=== PATIENT | male | born 1965 | race Caucasian/White ===

== ENCOUNTER 2017-10-07 07:08 | Inpatient (IN) ==
[2017-10-07] MEDS ORDERED: Ketorolac Inj 30 MG/ML (IVP) Vial IV.PUSH ONE (07:55)
[2017-10-07] MEDS ORDERED: Sod Chloride 0.9% Inj 1,000 ML IV.CONT SCH (08:00)
--- NOTE | 2017-10-07 08:04 | ED ---
HPI General Chief Complaint: Abdominal Pain Stated Complaint: Abd pain Time Seen by Provider: 10/07/17 07:46 Source: patient Mode of arrival: ambulatory Limitations: no limitations History of Present Illness HPI narrative: The patient is a 52-year-old male who presents to the emergency department for abdominal pain. The patient states he was seen a week ago on Friday for abdominal pain and diagnosed with diverticulitis after he received a CT the abdomen and pelvis. The patient was placed on Cipro and Flagyl, has taken the medications, however, his symptoms are progressing. He complains of suprapubic pain that radiates into the groin as well as left lower quadrant abdominal pain. The patient was scheduled for an outpatient colonoscopy and endoscopy by his supplier quality engineering manager, Dr. Whitney. The patient does have note fever at home as high as 100.9 last night, has been taking prescription hydrocodone/acetaminophen, last dose this morning which does help with the fever and mildly with the pain. He denies any nausea, vomiting, or diarrhea. He does have a history of enlarged prostate and polyuria, scheduled to see a urologist on an outpatient basis. He denies any current dysuria. Symptoms are mildly alleviated with hydrocodone, exacerbated by palpation, and moderate in intensity. MD complaint: abdominal pain Onset (ago): week(s) Pain Consistency: constant Location: LLQ and suprapubic Severity: moderate Severity scale (1-10): 6 Quality: aching Radiation: other (Groin) Migration to: LLQ Relieving factors: nothing Exacerbating factors: nothing Associated symptoms: denies other symptoms Treatments prior to arrival: prescription analgesics Related Data Previous Rx's Medication Instructions Recorded ciprofloxacin HCl [Cipro] 500 mg PO Q12H #10 tab 09/29/17 metronidazole [Flagyl] 500 mg PO Q8H #10 tab 09/29/17 Allergies Allergy/AdvReac Type Severity Reaction Status Date / Time No Known Allergies Unknown Uncoded 04/07/17 15:16 Review of Systems Except as stated in HPI: all other systems reviewed are negative Constitutional Denies fever(s) Cardiovascular Denies chest pain Respiratory Denies dyspnea Gastrointestinal Reports abdominal pain, Denies nausea and Denies vomiting Genitourinary Denies dysuria and Reports urinary frequency PMF Medical History Medical History Diverticulitis (Acute) Hypertension (Acute) Social History Social History Substance History: No History of Abuse Smoking Status: Never smoker How Often Do You Have a Drink Containing Alcohol: Never Recent Travel in [facility] within the Last 8 Weeks: Yes Recent Out of Country Travel within the Last 8 Weeks: No Exam Narrative Exam Narrative: GENERAL: Awake, alert, pleasant 52-year-old male who appears his stated age and appears in mild discomfort. SKIN: Focused skin assessment warm/dry. HEAD: Atraumatic. Normocephalic. EYES: No injection or drainage. ENT: No nasal bleeding or discharge. Mucous membranes pink and moist. NECK: Trachea midline. No JVD. CARDIOVASCULAR: Regular rate and rhythm. No murmur appreciated. RESPIRATORY: No accessory muscle use. Clear to auscultation. Breath sounds equal bilaterally. GASTROINTESTINAL: Abdomen soft, tender to palpation left lower quadrant and suprapubic region. No guarding or rigidity. Genitourinary: Circumcised phallus. Both testicles are descended, no tenderness upon palpation. Back: No CVA tenderness. MUSCULOSKELETAL: No obvious deformities. No clubbing. No cyanosis. No edema. NEUROLOGICAL: Awake and alert. No obvious cranial nerve deficits. Motor grossly within normal limits. Normal speech. PSYCHIATRIC: Appropriate mood and affect; insight and judgment normal. Course Consultations Consultation #1: The on-call medical service was paged for admission. I discussed the patient with the residents to agree with admission. Time: 12:01 Initial Documented Vital Signs Temperature 98.5 F 10/07/17 07:16 Pulse Rate 83 10/07/17 07:16 Respiratory Rate 19 10/07/17 07:16 Blood Pressure 163/71 H 10/07/17 07:16 Pulse Oximetry 97 10/07/17 07:16 Last Documented Vital Signs Temperature 98.5 F 10/07/17 07:16 Pulse Rate 72 10/07/17 11:50 Respiratory Rate 18 10/07/17 12:16 Blood Pressure 135/81 10/07/17 11:50 Pulse Oximetry 99 10/07/17 11:50 Medical Decision Making MDM Narrative Medical decision making narrative: IV was established, labs are drawn and sent, and the patient was placed on cardiac telemetry monitoring and continuous pulse oximetry monitoring. I reviewed the EMR, the patient's blood work last week revealed a white count of 16.[address] of the abdomen and pelvis with IV contrast revealed diverticulitis of the sigmoid colon. Therefore, IV was established and CBC and lactic acid were sent to lab. Repeat CT the abdomen and pelvis with IV and oral contrast was obtained to evaluate for possible diverticular abscess after failure of outpatient treatment. The patient was administered Toradol intravenously, declined morphine, stating it caused a headache last time he was administered morphine. Maintenance IV fluids were started. CT of the abdomen and pelvis reveals acute diverticulitis with early abscess formation. The patient has failed outpatient therapy, now has a diverticular abscess, was already on Cipro and Flagyl. The patient was administered Zosyn and will be admitted to the medical service. He may benefit from consultation with colorectal surgery. Differential Diagnosis Differential Diagnosis: Differential diagnosis includes diverticulitis failed outpatient therapy, diverticular abscess, perforated viscus, intra-abdominal abscess, sepsis, nephrolithiasis, pyelonephritis. Lab Data Lab results reviewed: Yes I reviewed the patient's lab results. Lab results narrative: The patient's white count is elevated at 17.1, creatinine is elevated at 1.38, lactic acid is normal. Result diagrams: 10/07/17 08:05 10/07/17 08:05 Lab Results 10/07/17 10/07/17 10/07/17 Range/Units 08:05 08:05 08:05 WBC 17.1 H (4.0-11.0) th/mm3 RBC 4.96 (4.50-5.90) mil/mm3 Hgb 14.6 (13.0-17.0) gm/dL Hct 42.8 (39.0-51.0) % MCV 86.4 (80.0-100.0) fL MCH 29.4 (27.0-34.0) pg MCHC 34.1 (32.0-36.0) % RDW 13.9 (11.6-17.2) % Plt Count 365 D (150-450) th/mm3 MPV 6.9 L (7.0-11.0) fL Neut % (Auto) 80.8 H (16.0-70.0) % Lymph % (Auto) 9.9 (9.0-44.0) % [place] % (Auto) 8.5 H (0.0-8.0) % Eos % (Auto) 0.6 (0.0-4.0) % Baso % (Auto) 0.2 (0.0-2.0) % Neut # (Auto) 13.8 H (1.8-7.7) th/mm3 Lymph # (Auto) 1.7 (1.0-4.8) th/mm3 [place] # (Auto) 1.5 H (0.0-0.9) th/mm3 Eos # (Auto) 0.1 (0.0-0.4) th/mm3 Baso # (Auto) 0.0 (0.0-0.2) th/mm3 WBC Differential . Differential Comment Auto diff final Sodium 138 (136-145) meq/L Potassium 3.9 (3.5-5.1) meq/L Chloride 103 (98-107) meq/L Carbon Dioxide 28.2 (21.0-32.0) meq/L Anion Gap 7 (5-15) meq/L BUN 14 (7-18) mg/dL Creatinine 1.38 H (0.60-1.30) mg/dL Estimated GFR 54 L (>89) mL/min Random Glucose 113 H (74-106) mg/dL Lactic Acid 0.7 (0.4-2.0) mmol/L Calcium 9.3 (8.5-10.1) mg/dL Total Bilirubin 0.4 (0.2-1.0) mg/dL AST 15 (15-37) U/L ALT 23 (12-78) U/L Alkaline Phosphatase 92 (45-117) U/L Total Protein 7.8 (6.4-8.2) g/dL Albumin 3.6 (3.4-5.0) g/dL Lipase 186 (73-393) U/L Urine Color (Yellw/Straw) Urine Clarity (Clear) Urine pH (5.0-8.5) Ur Specific [place] (1.002-1.035) Urine Protein (Neg-Trace) mg/dL Urine Glucose (UA) (Negative) mg/dL Urine Ketones (Negative) mg/dL Urine Occult Blood (Negative) Urine Nitrate (Negative) Urine Bilirubin (Negative) Urine Urobilinogen (Less than 2) mg/dL Ur Leukocyte Esterase (Negative) Urine RBC (0-3) /hpf Urine Mucus (Occasional) /lpf Micro UA Comment Urine Culture Comments 10/07/17 Range/Units 08:33 WBC (4.0-11.0) th/mm3 RBC (4.50-5.90) mil/mm3 Hgb (13.0-17.0) gm/dL Hct (39.0-51.0) % MCV (80.0-100.0) fL MCH (27.0-34.0) pg MCHC (32.0-36.0) % RDW (11.6-17.2) % Plt Count (150-450) th/mm3 MPV (7.0-11.0) fL Neut % (Auto) (16.0-70.0) % Lymph % (Auto) (9.0-44.0) % [place] % (Auto) (0.0-8.0) % Eos % (Auto) (0.0-4.0) % Baso % (Auto) (0.0-2.0) % Neut # (Auto) (1.8-7.7) th/mm3 Lymph # (Auto) (1.0-4.8) th/mm3 [place] # (Auto) (0.0-0.9) th/mm3 Eos # (Auto) (0.0-0.4) th/mm3 Baso # (Auto) (0.0-0.2) th/mm3 WBC Differential Differential Comment Sodium (136-145) meq/L Potassium (3.5-5.1) meq/L Chloride (98-107) meq/L Carbon Dioxide (21.0-32.0) meq/L Anion Gap (5-15) meq/L BUN (7-18) mg/dL Creatinine (0.60-1.30) mg/dL Estimated GFR (>89) mL/min Random Glucose (74-106) mg/dL Lactic Acid (0.4-2.0) mmol/L Calcium (8.5-10.1) mg/dL Total Bilirubin (0.2-1.0) mg/dL AST (15-37) U/L ALT (12-78) U/L Alkaline Phosphatase (45-117) U/L Total Protein (6.4-8.2) g/dL Albumin (3.4-5.0) g/dL Lipase (73-393) U/L Urine Color Yellow (Yellw/Straw) Urine Clarity Clear (Clear) Urine pH 6.0 (5.0-8.5) Ur Specific [place] 1.010 (1.002-1.035) Urine Protein Negative (Neg-Trace) mg/dL Urine Glucose (UA) Negative (Negative) mg/dL Urine Ketones Negative (Negative) mg/dL Urine Occult Blood Negative (Negative) Urine Nitrate Negative (Negative) Urine Bilirubin Negative (Negative) Urine Urobilinogen Less than 2 (Less than 2) mg/dL Ur Leukocyte Esterase Negative (Negative) Urine RBC 1 (0-3) /hpf Urine Mucus Few H (Occasional) /lpf Micro UA Comment Culture not ind Urine Culture Comments Culture not ind Imaging Data Radiologist's impression: Abdomen/Pelvis CT 10/07/17 07:55 CONCLUSION: 1. Findings characteristic of acute diverticulitis involving the sigmoid colon with apparent early abscess formation with air-fluid level. 2. Multiple left renal cysts. Discharge Plan Discharge Disposition Patient Disposition: 30 Still Patient Discharge Condition Condition: Stable Discharge Details Diagnosis: Diverticulitis large intestine Physicians Team ED Provider: Christiano Hsieh Primary Care Provider: Vasu Best Attending Provider: Facundo Meeks ED Status: Admitted Patient
[2017-10-07] MEDS ORDERED: Diatrizoate Meglum/Diatrizoate Sod Liq 9 ML UDC ONE (08:13)
[2017-10-07 08:21] LABS: Baso % (Auto) 0.2 % (0.0-2.0); Eos # (Auto) 0.1 th/mm3 (0.0-0.4); Eos % (Auto) 0.6 % (0.0-4.0); Hematocrit 42.8 % (39.0-51.0); Hemoglobin 14.6 gm/dL (13.0-17.0); Lymph # (Auto) 1.7 th/mm3 (1.0-4.8); Lymph % (Auto) 9.9 % (9.0-44.0); Mean Corpuscular HGB Conc 34.1 % (32.0-36.0); Mean Corpuscular Hemoglobin 29.4 pg (27.0-34.0); Mean Corpuscular Volume 86.4 fL (80.0-100.0); Mean Platelet Volume 6.9 fL (7.0-11.0); Mono # (Auto) 1.5 th/mm3 (0.0-0.9); Mono % (Auto) 8.5 % (0.0-8.0); Neut # (Auto) 13.8 th/mm3 (1.8-7.7); Neut % (Auto) 80.8 % (16.0-70.0); Platelet Count 365 th/mm3 (150-450); Red Blood Count 4.96 mil/mm3 (4.50-5.90); Red Cell Distribution Width 13.9 % (11.6-17.2); White Blood Count 17.1 th/mm3 (4.0-11.0)
[2017-10-07 08:34] LABS: Albumin 3.6 g/dL (3.4-5.0); Anion Gap 7 meq/L (5-15); Aspartate Aminotransferase 15 U/L (15-37); Blood Urea Nitrogen 14 mg/dL (7-18); Calcium 9.3 mg/dL (8.5-10.1); Carbon Dioxide 28.2 meq/L (21.0-32.0); Chloride 103 meq/L (98-107); Glomerular Filtration Rate 54 mL/min (>89); Glucose,Random 113 mg/dL (74-106); Lipase 186 U/L (73-393); Potassium 3.9 meq/L (3.5-5.1); Sodium 138 meq/L (136-145)
[2017-10-07 08:36] LABS: Alanine Aminotransferase 23 U/L (12-78)
[2017-10-07 08:37] LABS: Alkaline Phosphatase 92 U/L (45-117); Total Protein 7.8 g/dL (6.4-8.2)
[2017-10-07 09:51] LABS: Bilirubin,Urine Negative (Negative); Clarity,Urine Clear (Clear); Color,Urine Yellow (Yellw/Straw); Glucose,Urine (UA) Negative (Negative); Leukocyte Esterase,Urine Negative (Negative); Mucus,Urine Few /lpf (Occasional); Nitrite,Urine Negative (Negative)
--- NOTE | 2017-10-07 11:36 | CT ---
EXAM DATE: 10/07/2017 11:21 AM EDT AGE/SEX: 52 years / Male INDICATIONS: Suprapubic pain for 1 week CLINICAL DATA: This is the patient's initial encounter. Patient reports that signs and symptoms have been present for 1 day and indicates a pain score of 9/10. MEDICAL/SURGICAL HISTORY: Hypertension. None. ORAL CONTRAST: Prescribed oral contrast ingested. RADIATION DOSE: 7.88 CTDI (mGy) COMPARISON: [facility], CT ABDOMEN & PELVIS W CONTRAST, 09/29/2017. . TECHNIQUE: Multiple contiguous axial images were obtained through the abdomen and pelvis following b olus infusion of 90 ml Omnipaque 350 (iohexol) nonionic water-soluble contrast as a single exam dos e. Prescribed oral contrast ingested. Using automated exposure control and adjustment of the mA and/ or kV according to patient size, radiation dose was kept as low as reasonably achievable to obtain op timal diagnostic quality images. DICOM format image data is available electronically for review and comparison. FINDINGS: Lower Lungs: The visualized lower lungs are clear. Liver: The liver has a homogeneous density without space-occupying lesion. There is no dilation of th e biliary tree. The gallbladder is unremarkable in appearance. There is mild hepatic steatosis. Spleen: Homogeneous density without enlargement. Pancreas: Unremarkable without mass or calcification. Kidneys: Normal in size and shape. No evidence of a solid mass or hydronephrosis. A simple cyst is n oted in the upper pole of left kidney. There are smaller cysts as well. Adrenal Glands: Unremarkable. Aorta: The aorta and proximal iliac vessels are grossly unremarkable without aneurysmal dilation. Bowel/Mesentery: There is bowel wall thickening and inflammatory change involving the proximal sigmo id colon with focal fluid collection with air-fluid level measuring up to approximately 2.8 cm in helen meter. This extends off the right upper side of the colon. There is no well-defined wall. There are m ultiple adjacent diverticuli. The bowel gas pattern is nonobstructive. There is a normal appendix. Abdominal Wall: Intact. Retroperitoneum: No evidence of adenopathy in the retrocrural, para-aortic, or deep pelvic regions. Bladder: Contours are smooth. Reproductive Organs: No abnormal masses or calcifications seen. Inguinal: The inguinal region is unremarkable without evidence of adenopathy. Bony Structures: Unremarkable. CONCLUSION: 1. Findings characteristic of acute diverticulitis involving the sigmoid colon with apparent early a bscess formation with air-fluid level. 2. Multiple left renal cysts. Electronically signed by: Chauncey Rinaldi MD 10/07/2017 11:35 AM EDT
[2017-10-07] MEDS ORDERED: Piperacil/Tazo 4.5 GM Premix 4.5 GM/100 ML BAG IV.SIG ONE (11:54)
[2017-10-07] MEDS ORDERED: Diatrizoate Meglum/Diatrizoate Sod Liq 9 ML UDC PO ONE (12:00)
--- NOTE | 2017-10-07 12:34 | P.HPFP ---
Addendum entered and electronically signed by Yun Bautista MD, R1 10/07/17 17 :37: Increase of Zosyn to 4.5gq6 Original Note: History of Present Illness Primary Care Physician: Vasu Best DO <Facundo Meeks - 10/07/17 20:05> Vasu Best DO <Ynu Bautista - 10/07/17 13:01> Chief Complaint: Abdominal pain <Yun Bautista - 10/07/17 13:01> History of Present Illness: 52-year-old male presenting for abdominal pain and found to have diverticulitis with diverticular abscess on CT scan. He was seen in the emergency department 8 days ago for generalized abdominal pain and was diagnosed with diverticulitis. He was treated with Cipro and Flagyl and discharged, he noted some improvement while on the medication but completed his antibiotic course 4 days ago. Since that time he has noticed progression of his lower abdominal pain that he describes as sharp in nature that is worse with movement. He also endorses associated scrotal pain without swelling. He has noticed fevers up to 100.9F as well as decreased appetite and weight loss. He denies melena or hematochezia, denies chest pain or palpitations, denies nausea or vomiting, denies shortness of breath. <Facundo Meeks - 10/07/17 20:05> Mr. Loera is a 52yom here for abdominal and scrotal pain. He reports that he was seen in the ED last Friday for generalized abdominal pain. At that time he was diagnosed with diverticulitis and was d/c with Cipro and Flagyl. He was taking his medications and began to feel better. Ab course ended on Friday and he began to have lower abdominal pain. Sharp in nature, comes and goes, no real associated aggravating or alleviating factors. Associated scrotal pain that is relieved with urination. He has some nausea but no vomiting. Fever with max of about 100.9. He reports 10lb weight loss in past 2 weeks with not eating much. He has not had many bowel movements with his liquid diet though he did have a small one last night with no blood. He reports a history of bloating and immediate defecation post prandial which he states is normal for him but has abated since he stopped eating. He saw Dr Willis with GI with plans for a colonoscopy on Friday. PMH significant for colonoscopy 5 years ago with only "a couple of polyps" FMH significant for appendiceal cancer in mom <Yun Bautista 10/07/17 16:03> - Diagnosis (1) Colonic diverticular abscess (2) ELAINE (acute kidney injury) (3) Hypertension <Facundo Meeks 10/07/17 20:05> (1) Colonic diverticular abscess (2) ELAINE (acute kidney injury) (3) Hypertension <Yun Bautista 10/07/17 16:03> Inpatient Certification: I certify that the inpatient services were ordered in accordance with Medicare regulations governing the order. This includes certification that hospital inpatient services are reasonable and necessary and in the case of services not specified as inpatient-only under 42 CFR 419.22(n), that they are appropriately provided as inpatient services in accordance to with the 2-midnight benchmark under 43 CFR 412.3(e) <Facundo Meeks 10/07/17 20:05> Review of Systems Constitutional: Reports chills, Reports fever(s), Reports weight loss, Denies headache(s) <Yun Bautista 10/07/17 16:03> Eyes: Denies blurry vision, Denies change in vision, Denies double vision < Yun Bautista 10/07/17 16:03> Ears, Nose, Mouth, and Throat: Reports nasal discharge, Denies dizziness, Denies headache(s), Denies sore throat <Yun Bautista 10/07/17 16:03> Cardiovascular: Denies chest pain, Denies fast heart rate, Denies shortness of breath <Yun Bautista 10/07/17 16:03> Respiratory: Denies cough, Denies shortness of breath <Yun Bautista 16:03> Gastrointestinal: Reports abdominal pain, Reports cramping, Reports nausea, Denies black, tarry stools, Denies bright, red blood in stools, Denies incontinent of stools, Denies vomiting, Denies vomiting blood <Yun Bautista 10/07/17 16:03> Genitourinary: Reports urinary frequency, Denies blood in urine, Denies decreased urination, Denies difficulty urinating, Denies painful urination < MicheleYun Jacque 10/07/17 16:03> Musculoskeletal: Reports back pain, Denies numbness <Yun Bautista 10/07/17 16:03> Neurologic: Denies dizziness, Denies numbness, Denies tingling <MicheleYun E 10/07/17 16:03> PMFSH - History History Provided By: Patient <Luis Enrique Bautistareed Santillan 10/07/17 12:34> - Medical History Medical History: Medical History (Last Updated 10/07/17 @ 08:03 by Norma Snyder, RN) Diverticulitis Hypertension <JeannaIvelissey 10/07/17 20:05> Medical History (Last Updated 10/07/17 @ 08:03 by Norma Snyder, RODRIGUEZ) Diverticulitis Hypertension <MicheleYun E 10/07/17 12:34> - Family History Family History: Family History (Last Updated 10/07/17 @ 15:42 by Yun Bautista MD, R1) Mother Cancer of appendix Father Prostate cancer <JeannaFacundo Margaret 10/07/17 20:05> Family History (Last Updated 10/07/17 @ 15:42 by Yun Bautista MD, R1) Mother Cancer of appendix Father Prostate cancer <MicheleYun 10/07/17 16:03> - Tobacco History Smoking Status: Former smoker <MicheleYun E 10/07/17 16:03> - Alcohol History How Often Do You Have a Drink Containing Alcohol: Never <Yun Bautista 10/07 12:34> - Substance Use History Substance History: Active Abuse (Marijuana "occassionally") <Yun Bautista 10/07/17 16:03> - Travel History Recent Travel in the [facility] Within the Last 8 Weeks: Yes <Yun Bautista 12:34> Recent Travel Out of the Country Within the Last 8 Weeks: No <Yun Bautista 10/07/17 12:34> - Immunization History Tetanus Immunization: <5 Years <Yun Bautista 10/07/17 12:34> Medications and Allergies Allergies Allergy/AdvReac Type Severity Reaction Status Date / Time No Known Allergies Unknown Uncoded 04/07/17 15:16 <Facundo Meeks - 10/07/17 20:05> Home Medications Medication Instructions Recorded Confirmed Type metoprolol tartrate [Lopressor] 25 mg PO BID 10/07/17 10/07/17 History <Facundo Meeks - 10/07/17 20:05> Active Medications: Active Medications Acetaminophen (Tylenol) 650 mg PO Q6H PRN PRN Reason: ABDOMINAL PAIN Last Admin: 10/07/17 16:37 Dose: 650 mg Hydrocodone Bitart/Acetaminophen ([place] 5/325) 1 tab PO Q6H PRN PRN Reason: PAIN SCALE 6 TO 10 Last Admin: 10/07/17 19:43 Dose: 1 tab Al Hydroxide/Mg Hydroxide (Milk Of Magnmanuel Limirna) 30 ml PO Q12H PRN PRN Reason: Mild Constipation Piperacillin/Tazobactam/Dextrose (Zosyn 4.5 Gm Premix) 4.5 gm in 100 mls @ 200 mls/hr IV.SIG Q6H [facility] Last Admin: 10/07/17 19:42 Dose: 200 mls/hr Sodium Chloride (Ns Inj) 1,000 mls @ 125 mls/hr IV.CONT .Q8H [facility] Last Admin: 10/07/17 19:42 Dose: 125 mls/hr Metoprolol Tartrate (Lopressor) 25 mg PO DAILY [facility] Last Admin: 10/07/17 16:38 Dose: 25 mg Ondansetron HCl (Zofran Odt) 4 mg PO Q6H PRN PRN Reason: NAUSEA OR VOMITING Senna/Docusate Sodium (Daniela-Colace) 1 tab PO BID [facility] Sennosides (Senokot) 17.2 mg PO Q12H PRN PRN Reason: Moderate Constipation Sodium Chloride (Ns Flush) 2 ml IV.FLUSH PRN PRN PRN Reason: FLUSH AFTER USING IV ACCESS Last Admin: 10/07/17 08:16 Dose: 2 ml <Facundo Meeks - 10/07/17 20:05> Active Medications Sodium Chloride (Ns Inj) 1,000 mls @ 125 mls/hr IV.CONT .Q8H [facility] Stop: 10/07/17 15:59 Last Admin: 10/07/17 08:16 Dose: 125 mls/hr Piperacillin/Tazobactam/Dextrose (Zosyn 4.5 Gm Premix) 4.5 gm in 100 mls @ 200 mls/hr IV.SIG ONCE ONE Stop: 10/07/17 12:23 Sodium Chloride (Ns Flush) 2 ml IV.FLUSH PRN PRN PRN Reason: FLUSH AFTER USING IV ACCESS Last Admin: 10/07/17 08:16 Dose: 2 ml <Yun Bautista - 10/07/17 12:34> Exam Vital signs: Vital Signs 10/07/17 07:16 10/07/17 08:05 10/07/17 11:50 Temperature 98.5 F Pulse Rate 83 70 72 Respiratory Rate 19 18 18 Blood Pressure 163/71 H 131/78 135/81 Pulse Oximetry 97 96 99 10/07/17 12:16 10/07/17 16:00 Temperature 98.0 F Pulse Rate 66 Respiratory Rate 18 18 Blood Pressure 126/62 Pulse Oximetry 95 Intake & Output 10/07/17 10/07/17 10/08/17 06:59 18:59 06:59 Intake Total 1000 / 1000 Balance 1000 / 1000 Weight 79.379 kg Intake: IV 1000 / 1000 NS Inj 1,000 ML @ 125 mls/hr IV 1000 / 1000 .CONT .Q8H [facility] Rx#:[id number] <Facundo Meeks - 10/07/17 20:05> Vital Signs 10/07/17 07:16 10/07/17 08:05 10/07/17 11:50 Temperature 98.5 F Pulse Rate 83 70 72 Respiratory Rate 19 18 18 Blood Pressure 163/71 H 131/78 135/81 Pulse Oximetry 97 96 99 Intake & Output 10/06/17 10/07/17 10/07/17 18:59 06:59 18:59 Weight 79.379 kg <Yun Bautista 10/07/17 12:34> Narrative: General: Healthy-appearing male, sitting up in bed in no obvious distress Skin: Warm and dry without rash HEENT: [place] and mildly dry mucous membranes CV: Regular rate and rhythm without murmur Pulmonary: Clear to auscultation bilaterally GI: Abdomen soft with some guarding diffusely. Tender to palpation diffusely but more so in the suprapubic and left lower quadrant region <Facundo Meeks - 10/07/17 20:05> GENERAL: Well appearing male lying in bed. No acute distress. SKIN: Warm and dry. HEAD: Normocephalic. EYES: No scleral icterus. No injection or drainage. NECK: Supple, trachea midline. No JVD or lymphadenopathy. CARDIOVASCULAR: Regular rate and rhythm without murmurs, gallops, or rubs. RESPIRATORY: Breath sounds equal bilaterally. No accessory muscle use. GASTROINTESTINAL: Abdomen soft, minimally distended. Diffusely tender to light palpation, more so in R lower quadrant. : Scrotum mildly tender to palpation >on the right side. MUSCULOSKELETAL: No cyanosis, or edema. BACK: Nontender without obvious deformity. No CVA tenderness. <Yun Bautista - 10/07/17 16:03> Results - Labs Result diagrams: 10/07/17 08:05 10/07/17 08:05 <JeannaFacundo - 10/07/17 20:05> Abnormal lab results 10/07/17 10/07/17 10/07/17 Range/Units 08:05 08:05 08:33 WBC 17.1 H (4.0-11.0) th/mm3 MPV 6.9 L (7.0-11.0) fL Neut % (Auto) 80.8 H (16.0-70.0) % [place] % (Auto) 8.5 H (0.0-8.0) % Neut # (Auto) 13.8 H (1.8-7.7) th/mm3 [place] # (Auto) 1.5 H (0.0-0.9) th/mm3 Creatinine 1.38 H (0.60-1.30) mg/dL Estimated GFR 54 L (>89) mL/min Random Glucose 113 H (74-106) mg/dL Urine Mucus Few H (Occasional) /lpf Short CBC 10/07/17 Range/Units 08:05 WBC 17.1 H (4.0-11.0) th/mm3 Hgb 14.6 (13.0-17.0) gm/dL Hct 42.8 (39.0-51.0) % Plt Count 365 D (150-450) th/mm3 BMP 10/07/17 08:05 Sodium 138 Potassium 3.9 Chloride 103 Carbon Dioxide 28.2 BUN 14 Creatinine 1.38 H Calcium 9.3 Liver Function 10/07/17 Range/Units 08:05 Total Bilirubin 0.4 (0.2-1.0) mg/dL AST 15 (15-37) U/L ALT 23 (12-78) U/L Alkaline Phosphatase 92 (45-117) U/L Albumin 3.6 (3.4-5.0) g/dL Urine 10/07/17 Range/Units 08:33 Urine Color Yellow (Yellw/Straw) Urine Clarity Clear (Clear) Urine pH 6.0 (5.0-8.5) Ur Specific [place] 1.010 (1.002-1.035) Urine Protein Negative (Neg-Trace) mg/dL Urine Glucose (UA) Negative (Negative) mg/dL <Facundo Meeks - 10/07/17 20:05> Abnormal lab results 10/07/17 10/07/17 10/07/17 Range/Units 08:05 08:05 08:33 WBC 17.1 H (4.0-11.0) th/mm3 MPV 6.9 L (7.0-11.0) fL Neut % (Auto) 80.8 H (16.0-70.0) % [place] % (Auto) 8.5 H (0.0-8.0) % Neut # (Auto) 13.8 H (1.8-7.7) th/mm3 [place] # (Auto) 1.5 H (0.0-0.9) th/mm3 Creatinine 1.38 H (0.60-1.30) mg/dL Estimated GFR 54 L (>89) mL/min Random Glucose 113 H (74-106) mg/dL Urine Mucus Few H (Occasional) /lpf Short CBC 10/07/17 Range/Units 08:05 WBC 17.1 H (4.0-11.0) th/mm3 Hgb 14.6 (13.0-17.0) gm/dL Hct 42.8 (39.0-51.0) % Plt Count 365 D (150-450) th/mm3 BMP 10/07/17 08:05 Sodium 138 Potassium 3.9 Chloride 103 Carbon Dioxide 28.2 BUN 14 Creatinine 1.38 H Calcium 9.3 Liver Function 10/07/17 Range/Units 08:05 Total Bilirubin 0.4 (0.2-1.0) mg/dL AST 15 (15-37) U/L ALT 23 (12-78) U/L Alkaline Phosphatase 92 (45-117) U/L Albumin 3.6 (3.4-5.0) g/dL Urine 10/07/17 Range/Units 08:33 Urine Color Yellow (Yellw/Straw) Urine Clarity Clear (Clear) Urine pH 6.0 (5.0-8.5) Ur Specific [place] 1.010 (1.002-1.035) Urine Protein Negative (Neg-Trace) mg/dL Urine Glucose (UA) Negative (Negative) mg/dL <Yun Bautista - 10/07/17 12:34> - Imaging Impressions Abdomen/Pelvis CT 10/07/17 07:55 CONCLUSION: 1. Findings characteristic of acute diverticulitis involving the sigmoid colon with apparent early abscess formation with air-fluid level. 2. Multiple left renal cysts. <Facundo Meeks - 10/07/17 20:05> Impressions Abdomen/Pelvis CT 10/07/17 07:55 CONCLUSION: 1. Findings characteristic of acute diverticulitis involving the sigmoid colon with apparent early abscess formation with air-fluid level. 2. Multiple left renal cysts. <Yun Bautista - 10/07/17 12:34> Caprini VTE Risk Assessment Caprini VTE Risk Assessment: No/Low Risk (score <= 1) <Yun Bautista - 16:03> Caprini Risk Assessment Model: Point Value = 1 Point Value = 2 Point Value = 3 Point Value = 5 Age 41-60 Minor surgery BMI > 25 kg/m2 Swollen legs Varicose veins or History of unexplained or recurrent spontaneous Oral contraceptives or hormone replacement Sepsis (< 1 month) Serious lung disease, including pneumonia (< 1 month) Abnormal pulmonary function Acute myocardial infarction Congestive heart failure (< 1 month) History of inflammatory bowel disease Medical patient at bed rest Age 61-74 Arthroscopic surgery Major open surgery (> 45 min) Laparoscopic surgery (> 45 min) Malignancy Confined to bed (> 72 hours) Immobilizing plaster cast Central venous access Age >= 75 History of VTE Family history of VTE Factor V Leiden Prothrombin [id number] Lupus anticoagulant Anticardiolipin antibodies Elevated serum homocysteine Heparin-induced thrombocytopenia Other congenital or acquired thrombophilia Stroke (< 1 month) Elective arthroplasty Hip, pelvis, or leg fracture Acute spinal cord injury (< 1 month) <Facundo Meeks - 10/07/17 20:05> Point Value = 1 Point Value = 2 Point Value = 3 Point Value = 5 Age 41-60 Minor surgery BMI > 25 kg/m2 Swollen legs Varicose veins or History of unexplained or recurrent spontaneous Oral contraceptives or hormone replacement Sepsis (< 1 month) Serious lung disease, including pneumonia (< 1 month) Abnormal pulmonary function Acute myocardial infarction Congestive heart failure (< 1 month) History of inflammatory bowel disease Medical patient at bed rest Age 61-74 Arthroscopic surgery Major open surgery (> 45 min) Laparoscopic surgery (> 45 min) Malignancy Confined to bed (> 72 hours) Immobilizing plaster cast Central venous access Age >= 75 History of VTE Family history of VTE Factor V Leiden Prothrombin [id number] Lupus anticoagulant Anticardiolipin antibodies Elevated serum homocysteine Heparin-induced thrombocytopenia Other congenital or acquired thrombophilia Stroke (< 1 month) Elective arthroplasty Hip, pelvis, or leg fracture Acute spinal cord injury (< 1 month) <Yun Bautista - 10/07/17 12:34> Prophylaxis Regimen: Total Risk Factor Score Risk Level Prophylaxis Regimen 0-1 Low Early ambulation 2 Moderate Order ONE of the following: *Sequential Compression Device (SCD) *Heparin 5000 units SQ BID 3-4 Higher Order ONE of the following medications: *Heparin 5000 units SQ TID *Enoxaparin/Lovenox 40 mg SQ daily (WT < 150 kg, CrCl > 30 mL/min) *Enoxaparin/Lovenox 30 mg SQ daily (WT < 150 kg, CrCl > 10-29 mL/min) *Enoxaparin/Lovenox 30 mg SQ BID (WT < 150 kg, CrCl > 30 mL/min) AND/OR *Sequential Compression Device (SCD) 5 or more Highest Order ONE of the following medications: *Heparin 5000 units SQ TID (Preferred with Epidurals) *Enoxaparin/Lovenox 40 mg SQ daily (WT < 150 kg, CrCl > 30 mL/min) *Enoxaparin/Lovenox 30 mg SQ daily (WT < 150 kg, CrCl > 10-29 mL/min) *Enoxaparin/Lovenox 30 mg SQ BID (WT < 150 kg, CrCl > 30 mL/min) AND *Sequential Compression Device (SCD) <Facundo Meeks - 10/07/17 20:05> Total Risk Factor Score Risk Level Prophylaxis Regimen 0-1 Low Early ambulation 2 Moderate Order ONE of the following: *Sequential Compression Device (SCD) *Heparin 5000 units SQ BID 3-4 Higher Order ONE of the following medications: *Heparin 5000 units SQ TID *Enoxaparin/Lovenox 40 mg SQ daily (WT < 150 kg, CrCl > 30 mL/min) *Enoxaparin/Lovenox 30 mg SQ daily (WT < 150 kg, CrCl > 10-29 mL/min) *Enoxaparin/Lovenox 30 mg SQ BID (WT < 150 kg, CrCl > 30 mL/min) AND/OR *Sequential Compression Device (SCD) 5 or more Highest Order ONE of the following medications: *Heparin 5000 units SQ TID (Preferred with Epidurals) *Enoxaparin/Lovenox 40 mg SQ daily (WT < 150 kg, CrCl > 30 mL/min) *Enoxaparin/Lovenox 30 mg SQ daily (WT < 150 kg, CrCl > 10-29 mL/min) *Enoxaparin/Lovenox 30 mg SQ BID (WT < 150 kg, CrCl > 30 mL/min) AND *Sequential Compression Device (SCD) <Yun Bautista - 10/07/17 12:34> Assessment and Plan - Assessment (1) Colonic diverticular abscess Code(s): K57.20 - Diverticulitis of large intestine with perforation and abscess without bleeding Status: Acute Plan: Diverticulitis with abscess formation failing outpatient treatment with Cipro and Flagyl Antibiotics: Zosyn 3.375 g IV every 6 hoursday #1 Tylenol 650 mg p.o. every 6 hours as needed for fever N.p.o. with normal saline at 125 mL/hour Likely will require drainage by interventional radiology versus surgical intervention -general surgery consulted to evaluate (2) ELAINE (acute kidney injury) Code(s): N17.9 - Acute kidney failure, unspecified Status: Acute Plan: L infection ikely due to decreased oral intake and Normal saline running at 125 mL/hour and status post bolus of normal saline in the emergency department Repeat BMP in the morning It appears the patient's baseline creatinine is approximately 1.2 (3) Hypertension Code(s): I10 - Essential (primary) hypertension Status: Acute <Facundo Meeks - 10/07/17 20:05> (1) Colonic diverticular abscess Code(s): K57.20 - Diverticulitis of large intestine with perforation and abscess without bleeding Status: Acute Plan: -Pt failed outpatient treatment of diverticulitis with 7days of Cipro+ Flagyl -Consult to general surgery for evaluation with possible drainage -Zosyn 3.375g q6h day 1 of 7 -Tylenol 650mg PO q6h PRN abdominal -NS 125mL/hr -NS Bolus given in ED (2) ELAINE (acute kidney injury) Code(s): N17.9 - Acute kidney failure, unspecified Status: Acute Plan: -NS Fluid running at 125mL/hr -BMP in the morning, Continue to monitor -Pt's baseline Cr about 1.2, elevated to 1.38 (3) Hypertension Code(s): I10 - Essential (primary) hypertension Status: Acute Plan: Continue home medication of metoprolol 25mg daily <Yun Bautista - 10/07/17 16:03> - Assessment and Plan Discussed Condition With: No Meeks and Osman <Yun Bautista - 10/07/17 16:03> Discharge Planning: D/c home likely within next 72 hours pending surgery recommendations <Yun Bautista - 10/07/17 16:04> - Attending Attestation Patient was examined independently and case discussed with resident physicians I have read the above note and agree with the assessment/plan as discussed with me I was involved in all medical decision making for this patient Facundo Meeks MD <Facundo Meeks - 10/07/17 20:05>
[2017-10-07] MEDS ORDERED: Sod Chloride 0.9% Inj 1,000 ML IV.SIG ONE (14:34)
[2017-10-07] MEDS: Acetaminophen 325 MG Tablet PO PRN (16:37)
[2017-10-07] MEDS: Metoprolol Tartrate 25 MG Tablet PO SCH (16:38)
[2017-10-07] MEDS ORDERED: Piperacil/Tazo 3.375 GM Premix 50 ML IV.SIG SCH (18:00)
[2017-10-07] MEDS: Piperacil/Tazo 4.5 GM Premix 4.5 GM/100 ML BAG IV.SIG SCH (19:42)
[2017-10-07] MEDS: Sod Chloride 0.9% Inj 1,000 ML IV.CONT SCH (19:42)
[2017-10-07] MEDS: Senna/Docusate Sodium 8.6/50 MG Tablet PO SCH (20:11)
[2017-10-08] MEDS: Piperacil/Tazo 4.5 GM Premix 4.5 GM/100 ML BAG IV.SIG SCH ×5 (00:42→23:41)
[2017-10-08] MEDS: Sod Chloride 0.9% Inj 1,000 ML IV.CONT SCH ×4 (05:27→20:57)
[2017-10-08 07:30] LABS: Hematocrit 38.6 % (39.0-51.0); Hemoglobin 13.1 gm/dL (13.0-17.0); Mean Corpuscular Hemoglobin 29.6 pg (27.0-34.0); Mean Corpuscular Volume 87.1 fL (80.0-100.0); Mean Platelet Volume 7.2 fL (7.0-11.0); Platelet Count 340 th/mm3 (150-450); Red Blood Count 4.44 mil/mm3 (4.50-5.90); Red Cell Distribution Width 13.5 % (11.6-17.2); White Blood Count 14.6 th/mm3 (4.0-11.0)
[2017-10-08 07:34] LABS: Prothrombin Time 10.5 sec (9.8-11.6)
[2017-10-08 07:52] LABS: Calcium 8.7 mg/dL (8.5-10.1); Potassium 3.9 meq/L (3.5-5.1)
--- NOTE | 2017-10-08 08:36 | P.CONGS ---
[facility] Gen Surgery Consult Note Consult date: 10/08/17 Reason for consult: abdominal pain Narrative: Patient is a 52-year-old male who presented to the emergency department 1 week ago due to lower abdominal pain and was diagnosed with diverticulitis. He was discharged with oral Cipro/Flagyl. He felt somewhat improved for a couple of days and then the pain again worsened. He was evaluated in the emergency department yesterday noted to have leukocytosis and a CT scan of the abdomen pelvis shows persistent sigmoid diverticulitis with peridiverticular abscess. He has mild discomfort when urinating. He had a small dark bowel movement this morning. He currently complains of severe pain in the suprapubic area and left lower quadrant. 2 months ago he had a similar episode but much milder. Otherwise he has never had any episodes of diverticulitis that he knows of. No previous abdominal surgeries. Review of Systems All other systems reviewed negative except as stated in [facility] - History History Provided By: Patient - Medical History Medical History: Medical History (Last Updated 10/07/17 @ 08:03 by Norma Snyder RN) Diverticulitis Hypertension - Family History Family History: Family History (Last Updated 10/07/17 @ 15:42 by Yun Bautista MD, R1) Mother Cancer of appendix Father Prostate cancer - Tobacco History Second Hand Smoke Exposure: No Tobacco Use In Past 30 Days: No Smoking Status: Former smoker - Alcohol History How Often Do You Have a Drink Containing Alcohol: Never - Substance Use History Substance History: Active Abuse (Marijuana "occassionally") - Travel History Recent Travel in the [place] Within the Last 8 Weeks: Yes Recent Travel Out of the Country Within the Last 8 Weeks: No - Immunization History Tetanus Immunization: <5 Years Medications and Allergies Active Medications: Active Medications Acetaminophen (Tylenol) 650 mg PO Q6H PRN PRN Reason: ABDOMINAL PAIN Last Admin: 10/07/17 16:37 Dose: 650 mg Hydrocodone Bitart/Acetaminophen (Mason 5/325) 1 tab PO Q6H PRN PRN Reason: PAIN SCALE 6 TO 10 Last Admin: 10/08/17 02:02 Dose: 1 tab Al Hydroxide/Mg Hydroxide (Milk Of Magnesia Liq) 30 ml PO Q12H PRN PRN Reason: Mild Constipation Piperacillin/Tazobactam/Dextrose (Zosyn 4.5 Gm Premix) 4.5 gm in 100 mls @ 200 mls/hr IV.SIG Q6H [facility] Last Infusion: 10/08/17 05:56 Dose: Infused Sodium Chloride (Ns Inj) 1,000 mls @ 125 mls/hr IV.CONT .Q8H [facility] Last Admin: 10/08/17 05:27 Dose: 125 mls/hr Metoprolol Tartrate (Lopressor) 25 mg PO DAILY [facility] Last Admin: 10/07/17 16:38 Dose: 25 mg Ondansetron HCl (Zofran Odt) 4 mg PO Q6H PRN PRN Reason: NAUSEA OR VOMITING Senna/Docusate Sodium (Daniela-Colace) 1 tab PO BID [facility] Last Admin: 10/07/17 20:11 Dose: Not Given Sennosides (Senokot) 17.2 mg PO Q12H PRN PRN Reason: Moderate Constipation Sodium Chloride (Ns Flush) 2 ml IV.FLUSH PRN PRN PRN Reason: FLUSH AFTER USING IV ACCESS Last Admin: 10/07/17 08:16 Dose: 2 ml Allergies Allergy/AdvReac Type Severity Reaction Status Date / Time No Known Allergies Unknown Uncoded 04/07/17 15:16 Home Medications Medication Instructions Recorded Confirmed Type metoprolol tartrate [Lopressor] 25 mg PO BID 10/07/17 10/07/17 History Exam Vital signs: Vital Signs 10/07/17 11:50 10/07/17 12:16 10/07/17 16:00 Temperature 98.0 F Pulse Rate 72 66 Respiratory Rate 18 18 18 Blood Pressure 135/81 126/62 Pulse Oximetry 99 95 10/07/17 20:00 10/08/17 00:00 Temperature 98.1 F 97.8 F Pulse Rate 69 62 Respiratory Rate 17 17 Blood Pressure 121/62 139/66 Pulse Oximetry 97 97 Intake & Output 10/07/17 10/08/17 10/08/17 18:59 06:59 18:59 Intake Total 2099 1300 / 1300 Balance 2099 1300 / 1300 Weight 79.379 kg Intake: IV 2099 / 2099 1300 / 1300 NS Inj 1,000 ML @ 125 mls/hr IV 1000 / 1000 1000 / 1000 .CONT .Q8H [facility] Rx#:[id number] Zosyn 4.5 GM Premix 4.5 gm In 100 / 100 300 / 300 100 ml @ 200 mls/hr IV.SIG Q6H [facility] Rx#:[id number] NS Inj 1,000 ML @ Wide Open IV. 1000 / 1000 SIG BOLUS ONE Rx#:[id number] Other: # Voids 3 Narrative: GENERAL: Awake and alert. Appears in pain. Cooperative. HEAD: Normocephalic. Atraumatic. EYES: Pupils equal round and reactive to light bilaterally. No scleral icterus. ENT: Moist oral mucosa. NECK: Trachea midline. CHEST: Nonlabored breathing. No respiratory distress. CARDIOVASCULAR: Regular rate and rhythm. ABDOMEN: Soft. Rebound tenderness in the suprapubic area and left lower abdomen. Otherwise nontender. EXTREMITIES: No cyanosis or edema. SKIN: Warm, dry, nonjaundiced. Results - Labs 10/08/17 06:14 10/08/17 06:14 Abnormal lab results 10/07/17 10/07/17 10/08/17 Range/Units 08:05 08:33 06:14 WBC 14.6 H (4.0-11.0) th/mm3 RBC 4.44 L (4.50-5.90) mil/mm3 Hct 38.6 L (39.0-51.0) % Creatinine 1.38 H (0.60-1.30) mg/dL Estimated GFR 54 L (>89) mL/min Random Glucose 113 H (74-106) mg/dL Urine Mucus Few H (Occasional) /lpf 10/08/17 Range/Units 06:14 WBC (4.0-11.0) th/mm3 RBC (4.50-5.90) mil/mm3 Hct (39.0-51.0) % Creatinine (0.60-1.30) mg/dL Estimated GFR 61 L (>89) mL/min Random Glucose (74-106) mg/dL Urine Mucus (Occasional) /lpf Diabetes panel 10/07/17 10/08/17 Range/Units 08:05 06:14 Sodium 138 140 (136-145) meq/L Potassium 3.9 3.9 (3.5-5.1) meq/L Chloride 103 106 (98-107) meq/L Carbon Dioxide 28.2 25.0 (21.0-32.0) meq/L BUN 14 11 (7-18) mg/dL Creatinine 1.38 H 1.23 (0.60-1.30) mg/dL Calcium 9.3 8.7 (8.5-10.1) mg/dL AST 15 (15-37) U/L ALT 23 (12-78) U/L Alkaline Phosphatase 92 (45-117) U/L Total Protein 7.8 (6.4-8.2) g/dL Albumin 3.6 (3.4-5.0) g/dL Calcium panel 10/07/17 10/08/17 Range/Units 08:05 06:14 Calcium 9.3 8.7 (8.5-10.1) mg/dL Albumin 3.6 (3.4-5.0) g/dL Pituitary panel 10/07/17 10/08/17 Range/Units 08:05 06:14 Sodium 138 140 (136-145) meq/L Potassium 3.9 3.9 (3.5-5.1) meq/L Chloride 103 106 (98-107) meq/L Carbon Dioxide 28.2 25.0 (21.0-32.0) meq/L BUN 14 11 (7-18) mg/dL Creatinine 1.38 H 1.23 (0.60-1.30) mg/dL Calcium 9.3 8.7 (8.5-10.1) mg/dL Adrenal panel 10/07/17 10/08/17 Range/Units 08:05 06:14 Sodium 138 140 (136-145) meq/L Potassium 3.9 3.9 (3.5-5.1) meq/L Chloride 103 106 (98-107) meq/L Carbon Dioxide 28.2 25.0 (21.0-32.0) meq/L BUN 14 11 (7-18) mg/dL Creatinine 1.38 H 1.23 (0.60-1.30) mg/dL Calcium 9.3 8.7 (8.5-10.1) mg/dL Total Bilirubin 0.4 (0.2-1.0) mg/dL AST 15 (15-37) U/L ALT 23 (12-78) U/L Alkaline Phosphatase 92 (45-117) U/L Total Protein 7.8 (6.4-8.2) g/dL Albumin 3.6 (3.4-5.0) g/dL All other labs normal. - Imaging CT scan - abdomen: report reviewed, image reviewed CT scan - pelvis: report reviewed, image reviewed (Discussed CT findings with Dr. Donahue radiology) Assessment and Plan - Assessment (1) Colonic diverticular abscess Code(s): K57.20 - Diverticulitis of large intestine with perforation and abscess without bleeding Status: Acute - Plan The patient has failed outpatient management of diverticulitis and has progressed to having it diverticular abscess while on oral medications. Continue IV Zosyn. Discussed CT findings with radiology and they will likely be able to perform CT-guided abscess drainage. If the patient's symptoms persist or worsen is possible he would require operative intervention. Discussed all these findings in detail with the patient and his .
[2017-10-08] MEDS: Metoprolol Tartrate 25 MG Tablet PO SCH (08:43)
[2017-10-08] MEDS: Senna/Docusate Sodium 8.6/50 MG Tablet PO SCH ×2 (08:43→20:57)
--- NOTE | 2017-10-08 08:54 | P.PNGS ---
Subjective Interval history: Discussed case with Dr. Figueroa radiology. He does not feel that attempt at abscess drainage will be safe at this time. Will continue conservative tx with IV antibiotics alone. Follow clinically and with labs. Will consider repeat CT a/p in a few days if necessary. Physical Exam Vital signs: Vital Signs 10/07/17 11:50 10/07/17 12:16 10/07/17 16:00 Temperature 98.0 F Pulse Rate 72 66 Respiratory Rate 18 18 18 Blood Pressure 135/81 126/62 Pulse Oximetry 99 95 10/07/17 20:00 10/08/17 00:00 Temperature 98.1 F 97.8 F Pulse Rate 69 62 Respiratory Rate 17 17 Blood Pressure 121/62 139/66 Pulse Oximetry 97 97 Intake & Output 10/07/17 10/08/17 10/08/17 18:59 06:59 18:59 Intake Total 2100 / 2100 1300 / 1300 Balance 2100 / 2100 1300 / 1300 Weight 79.379 kg Intake: IV 2100 / 2100 1300 / 1300 NS Inj 1,000 ML @ 125 mls/hr IV 1000 / 1000 1000 / 1000 .CONT .Q8H [facility] Rx#:[id number] Zosyn 4.5 GM Premix 4.5 gm In 100 / 100 300 / 300 100 ml @ 200 mls/hr IV.SIG Q6H [facility] Rx#:[id number] NS Inj 1,000 ML @ Wide Open IV. 1000 / 1000 SIG BOLUS ONE Rx#:[id number] Other: # Voids 3 Assessment and Plan - Assessment (1) Colonic diverticular abscess Code(s): K57.20 - Diverticulitis of large intestine with perforation and abscess without bleeding Status: Acute - Plan The patient has failed outpatient management of diverticulitis and has progressed to having it diverticular abscess while on oral medications. Continue IV Zosyn. Discussed CT findings with radiology and they will likely be able to perform CT-guided abscess drainage. If the patient's symptoms persist or worsen is possible he would require operative intervention. Discussed all these findings in detail with the patient and his .
[2017-10-08] MEDS ORDERED: HYDROmorphone PF Inj 1 MG/ML Ampul IV.PUSH PRN (10:00)
[2017-10-08] MEDS ORDERED: HYDROmorphone PF Inj 2 MG/ML Vial IV.PUSH PRN (10:24)
--- NOTE | 2017-10-08 11:24 | P.PNFP ---
Subjective Interval history: Patient seen and examined this morning. Patient reports continued pain and trouble sleeping overnight. States his pain is not any better this morning. Had a bowel movement this morning. Said it was dark, but no marilee blood. Denies any nausea or vomiting. Endorses continued abdominal pain. States the pain medication only works for 4 hours. Denies any other new complaints, denies any fever chills, chest pain, shortness of breath, leg pain. <Jay Comer - 10/08/17 11:23> Results - Labs Result diagrams: 10/08/17 06:14 10/08/17 06:14 <Facundo Meeks - 10/08/17 15:25> Abnormal lab results 10/08/17 10/08/17 Range/Units 06:14 06:14 WBC 14.6 H (4.0-11.0) th/mm3 RBC 4.44 L (4.50-5.90) mil/mm3 Hct 38.6 L (39.0-51.0) % Estimated GFR 61 L (>89) mL/min Short CBC 10/08/17 Range/Units 06:14 WBC 14.6 H (4.0-11.0) th/mm3 Hgb 13.1 (13.0-17.0) gm/dL Hct 38.6 L (39.0-51.0) % Plt Count 340 (150-450) th/mm3 BMP 10/08/17 06:14 Sodium 140 Potassium 3.9 Chloride 106 Carbon Dioxide 25.0 BUN 11 Creatinine 1.23 Calcium 8.7 <Facundo Meeks - 10/08/17 15:25> Abnormal lab results 10/08/17 10/08/17 Range/Units 06:14 06:14 WBC 14.6 H (4.0-11.0) th/mm3 RBC 4.44 L (4.50-5.90) mil/mm3 Hct 38.6 L (39.0-51.0) % Estimated GFR 61 L (>89) mL/min Short CBC 10/08/17 Range/Units 06:14 WBC 14.6 H (4.0-11.0) th/mm3 Hgb 13.1 (13.0-17.0) gm/dL Hct 38.6 L (39.0-51.0) % Plt Count 340 (150-450) th/mm3 BMP 10/08/17 06:14 Sodium 140 Potassium 3.9 Chloride 106 Carbon Dioxide 25.0 BUN 11 Creatinine 1.23 Calcium 8.7 <Jay Comer - 10/08/17 11:23> - Imaging Impressions CT Consultation 10/08/17 00:00 CONCLUSION: 1. Consultation for possible percutaneous drainage of pericolic abscess was performed. The pericolic abscess is small in size and is surrounded by inflamed loops of small and large bowel with no adequate window for drainage at this time. The findings were discussed with Dr. Carlson at the time of the consultation. <Facundo Meeks 10/08/17 15:25> Impressions Abdomen/Pelvis CT 10/07/17 07:55 CONCLUSION: 1. Findings characteristic of acute diverticulitis involving the sigmoid colon with apparent early abscess formation with air-fluid level. 2. Multiple left renal cysts. <Jay Comer - 10/08/17 11:23> Physical Exam Vital signs: Vital Signs 10/07/17 16:00 10/07/17 20:00 10/08/17 00:00 Temperature 98.0 F 98.1 F 97.8 F Pulse Rate 66 69 62 Respiratory Rate 18 17 17 Blood Pressure 126/62 121/62 139/66 Pulse Oximetry 95 97 97 10/08/17 08:00 10/08/17 12:00 Temperature 98.3 F 98.0 F Pulse Rate 72 64 Respiratory Rate 17 17 Blood Pressure 134/68 146/80 H Pulse Oximetry 98 96 Intake & Output 10/07/17 10/08/17 10/08/17 18:59 06:59 18:59 Intake Total 2099 / 2099 1300 / 1300 1000 / 1000 Balance 2099 / 2099 1300 / 1300 1000 / 1000 Weight 79.379 kg Intake: IV 2099 / 2100 1300 / 1300 1000 / 1000 NS Inj 1,000 ML @ 125 mls/hr IV 1000 / 1000 1000 / 1000 1000 / 1000 .CONT .Q8H [facility] Rx#:[id number] Zosyn 4.5 GM Premix 4.5 gm In 100 / 100 300 / 300 100 ml @ 200 mls/hr IV.SIG Q6H [facility] Rx#:[id number] NS Inj 1,000 ML @ Wide Open IV. 1000 / 1000 SIG BOLUS ONE Rx#:[id number] Other: # Voids 3 <Facundo Meeks 10/08/17 15:25> Vital Signs 10/07/17 11:50 10/07/17 12:16 10/07/17 16:00 Temperature 98.0 F Pulse Rate 72 66 Respiratory Rate 18 18 18 Blood Pressure 135/81 126/62 Pulse Oximetry 99 95 10/07/17 20:00 10/08/17 00:00 10/08/17 08:00 Temperature 98.1 F 97.8 F 98.3 F Pulse Rate 69 62 72 Respiratory Rate 17 17 17 Blood Pressure 121/62 139/66 134/68 Pulse Oximetry 97 97 98 Intake & Output 10/07/17 10/08/17 10/08/17 18:59 06:59 18:59 Intake Total 2100 / 2100 1300 / 1300 1000 / 1000 Balance 2100 / 2100 1300 / 1300 1000 / 1000 Weight 79.379 kg Intake: IV 2100 / 2100 1300 / 1300 1000 / 1000 NS Inj 1,000 ML @ 125 mls/hr IV 1000 / 1000 1000 / 1000 1000 / 1000 .CONT .Q8H [facility] Rx#:[id number] Zosyn 4.5 GM Premix 4.5 gm In 100 / 100 300 / 300 100 ml @ 200 mls/hr IV.SIG Q6H [facility] Rx#:[id number] NS Inj 1,000 ML @ Wide Open IV. 1000 / 1000 SIG BOLUS ONE Rx#:[id number] Other: # Voids 3 <Jay Comer Sanchez - 10/08/17 11:23> Narrative: GENERAL: SKIN: Warm and dry. CARDIOVASCULAR: Regular rate and rhythm. RESPIRATORY: No accessory muscle use. Clear to auscultation. Breath sounds equal bilaterally. GASTROINTESTINAL: Abdomen soft, nondistended. Diffusely mildly tender to palpation. Bowel sounds present. MUSCULOSKELETAL: Extremities without clubbing, cyanosis, or edema. No obvious deformities. NEUROLOGICAL: Awake and alert. Normal speech. PSYCHIATRIC: Appropriate mood and affect; insight and judgment normal. <SengregisJay Sanchez - 10/08/17 11:23> Assessment and Plan - Assessment (1) Colonic diverticular abscess Code(s): K57.20 - Diverticulitis of large intestine with perforation and abscess without bleeding Status: Acute (2) ELAINE (acute kidney injury) Code(s): N17.9 - Acute kidney failure, unspecified Status: Acute (3) Hypertension Code(s): I10 - Essential (primary) hypertension Status: Acute (4) Nutrition, metabolism, and development symptoms Code(s): R63.8 - Other symptoms and signs concerning food and fluid intake Status: Acute <Facundo Meeks - 10/08/17 15:25> (1) Colonic diverticular abscess Code(s): K57.20 - Diverticulitis of large intestine with perforation and abscess without bleeding Status: Acute Plan: Diverticulitis with abscess formation after failing outpatient treatment with Cipro and Flagyl General surgery consulted-appreciate recs: at this time, unable to drain with IR , will continue conservative treatment with IV antibiotics and consider repeat CT in a few days. Antibiotics: Zosyn 4.5 g IV every 6 hoursday #2, will continue to monitor kidney function Tylenol 650 mg p.o. every 6 hours as needed for fever Pain control with [place] and Dilaudid IV Full liquid diet Normal saline at 125 mL/hour (2) ELAINE (acute kidney injury) Code(s): N17.9 - Acute kidney failure, unspecified Status: Acute Plan: Likely due to decreased oral intake and infection Normal saline running at 125 mL/hour and status post bolus of normal saline in the emergency department Creatinine improved to 1.23 this morning Continue to monitor daily BMP It appears the patient's baseline creatinine is approximately 1.2 (3) Hypertension Code(s): I10 - Essential (primary) hypertension Status: Acute Plan: Continue home medication of metoprolol 25mg daily (4) Nutrition, metabolism, and development symptoms Code(s): R63.8 - Other symptoms and signs concerning food and fluid intake Status: Acute Plan: Fluids: NS @ 125mls/hr Electrolytes: monitor, replace PRN Nutrition: Full liquid diet DVT ppx: early ambulation <KassiesantyJay Sanchez - 10/08/17 11:15> - Attending Attestation Patient examined independently and case discussed with resident physician I have read the above note and agree with the assessment/plan as discussed with me I was involved in all medical decision making for this patient Unable to perform CT-guided aspiration of the abscess due to location -In discussion with general surgery, Dr. Carlson, we will continue with IV antibiotics and reimage patient in the next 24-48 hours -May require surgical intervention which will likely lead to colostomy versus diverting ileostomy, will try to avoid this if possible, however if surgery is needed this may be required Continue IV antibiotics with Zosyn Pain control with Dilaudid and we will add Toradol Facundo Meeks MD <Facundo Meeks - 10/08/17 15:25>
--- NOTE | 2017-10-08 14:15 | CT ---
EXAM DATE: 10/08/2017 2:09 PM EDT AGE/SEX: 52 years / Male INDICATIONS: Evaluate for abdominal abscess drain. [place]PAR[place]: [facility] [place]EL[place]AST, 10/07/2017. . FINDINGS: Consultation for possible percutaneous drainage of pericolic abscess was performed. The pericolic abs cess is small in size and is surrounded by inflamed loops of small and large bowel with no adequate w indow for drainage at this time. The findings were discussed with Dr. Carlson at the time of the consult ation. CONCLUSION: 1. Consultation for possible percutaneous drainage of pericolic abscess was performed. The pericolic abscess is small in size and is surrounded by inflamed loops of small and large bowel with no adequa te window for drainage at this time. The findings were discussed with Dr. Carlson at the time of the con sultation. Electronically signed by: Prosper Figueroa MD 10/08/2017 2:13 PM EDT
[2017-10-08] MEDS ORDERED: Ketorolac Inj 30 MG/ML (IVP) Vial IV.PUSH PRN (15:24)
[2017-10-09] MEDS: Sod Chloride 0.9% Inj 1,000 ML IV.CONT SCH ×3 (05:12→20:41)
[2017-10-09] MEDS: Piperacil/Tazo 4.5 GM Premix 4.5 GM/100 ML BAG IV.SIG SCH ×4 (05:22→23:42)
[2017-10-09] MEDS: Metoprolol Tartrate 25 MG Tablet PO SCH (08:52)
[2017-10-09] MEDS: Senna/Docusate Sodium 8.6/50 MG Tablet PO SCH ×2 (08:52→20:41)
[2017-10-09 08:58] LABS: Baso % (Auto) 0.1 % (0.0-2.0); Eos # (Auto) 0.2 th/mm3 (0.0-0.4); Eos % (Auto) 1.5 % (0.0-4.0); Hematocrit 38.1 % (39.0-51.0); Lymph # (Auto) 1.2 th/mm3 (1.0-4.8); Mean Corpuscular Hemoglobin 29.6 pg (27.0-34.0); Mono # (Auto) 0.9 th/mm3 (0.0-0.9); Mono % (Auto) 7.4 % (0.0-8.0); Neut # (Auto) 9.4 th/mm3 (1.8-7.7); Platelet Count 325 th/mm3 (150-450); Red Blood Count 4.38 mil/mm3 (4.50-5.90); Red Cell Distribution Width 13.6 % (11.6-17.2); White Blood Count 11.6 th/mm3 (4.0-11.0)
[2017-10-09 09:14] LABS: Calcium 8.8 mg/dL (8.5-10.1); Potassium 3.8 meq/L (3.5-5.1)
--- NOTE | 2017-10-09 10:24 | P.PNFP ---
Subjective Interval history: Mr. Loera had no overnight events. General surgery evaluated yesterday recommends no drainage with repeat CT tomorrow. This morning Mr. Meyers reports that he had a bowel movement with a small white particle within it. He states it looked "like a piece of gum". He denies any marilee blood or dark tarry stools. He reports his abdominal pain is much improved. He denies difficulty with urination, nausea, vomiting, chest pain, shortness of breath, leg pain. <Yun Bautista - 10/09/17 10:24> Results - Labs Result diagrams: 10/09/17 07:52 10/09/17 07:52 <Facundo Meeks - 10/09/17 17:52> Abnormal lab results 10/09/17 10/09/17 Range/Units 07:52 07:52 WBC 11.6 H (4.0-11.0) th/mm3 RBC 4.38 L (4.50-5.90) mil/mm3 Hct 38.1 L (39.0-51.0) % Neut % (Auto) 81.0 H (16.0-70.0) % Neut # (Auto) 9.4 H (1.8-7.7) th/mm3 Estimated GFR 62 L (>89) mL/min Short CBC 10/09/17 Range/Units 07:52 WBC 11.6 H (4.0-11.0) th/mm3 Hgb 13.0 (13.0-17.0) gm/dL Hct 38.1 L (39.0-51.0) % Plt Count 325 (150-450) th/mm3 [facility] [place] 10/09/17 07:52 Sodium 140 Potassium 3.8 Chloride 104 Carbon Dioxide 28.0 BUN 8 Creatinine 1.22 Calcium 8.8 <Facundo Meeks - 10/09/17 17:52> Abnormal lab results 10/09/17 10/09/17 Range/Units 07:52 07:52 WBC 11.6 H (4.0-11.0) th/mm3 RBC 4.38 L (4.50-5.90) mil/mm3 Hct 38.1 L (39.0-51.0) % Neut % (Auto) 81.0 H (16.0-70.0) % Neut # (Auto) 9.4 H (1.8-7.7) th/mm3 Estimated GFR 62 L (>89) mL/min Short CBC 10/09/17 Range/Units 07:52 WBC 11.6 H (4.0-11.0) th/mm3 Hgb 13.0 (13.0-17.0) gm/dL Hct 38.1 L (39.0-51.0) % Plt Count 325 (150-450) th/mm3 BMP 10/09/17 07:52 Sodium 140 Potassium 3.8 Chloride 104 Carbon Dioxide 28.0 BUN 8 Creatinine 1.22 Calcium 8.8 <Yun Bautista - 10/09/17 10:24> - Imaging Impressions CT Consultation 10/08/17 00:00 CONCLUSION: 1. Consultation for possible percutaneous drainage of pericolic abscess was performed. The pericolic abscess is small in size and is surrounded by inflamed loops of small and large bowel with no adequate window for drainage at this time. The findings were discussed with Dr. Carlson at the time of the consultation. <Yun Bautista - 10/09/17 10:24> Physical Exam Vital signs: Vital Signs 10/08/17 20:00 10/09/17 00:00 10/09/17 08:00 Temperature 98.9 F 98.6 F 97.7 F Pulse Rate 69 74 74 Respiratory Rate 22 20 16 Blood Pressure 117/60 139/72 153/88 H Pulse Oximetry 95 97 10/09/17 12:00 Temperature 97.6 F Pulse Rate 57 L Respiratory Rate 18 Blood Pressure 130/69 Pulse Oximetry 95 Intake & Output 10/08/17 10/09/17 10/09/17 18:59 06:59 18:59 Intake Total 2200 / 2200 1100 / 1100 1200 / 1200 Balance 2200 / 2200 1100 / 1100 1200 / 1200 Intake: IV 2200 / 2200 1100 / 1100 1200 / 1200 NS Inj 1,000 ML @ 125 mls/hr IV 2000 / 2000 1000 / 1000 1000 / 1000 .CONT .Q8H [facility] Rx#:[id number] Zosyn 4.5 GM Premix 4.5 gm In 200 / 200 100 / 100 200 / 200 100 ml @ 200 mls/hr IV.SIG Q6H [facility] Rx#:[id number] Other: # Voids 10 2 # Bowel Movements 1 <Facundo Meeks - 10/09/17 17:52> Vital Signs 10/08/17 12:00 10/08/17 16:00 10/08/17 20:00 Temperature 98.0 F 97.7 F 98.9 F Pulse Rate 64 76 69 Respiratory Rate 17 17 22 Blood Pressure 146/80 H 146/70 H 117/60 Pulse Oximetry 96 97 95 10/09/17 00:00 Temperature 98.6 F Pulse Rate 74 Respiratory Rate 20 Blood Pressure 139/72 Pulse Oximetry 97 Intake & Output 10/08/17 10/09/17 10/09/17 18:59 06:59 18:59 Intake Total 2200 / 2200 1100 / 1100 100 / 100 Balance 2200 / 2200 1100 / 1100 100 / 100 Intake: IV 2200 / 2200 1100 / 1100 100 / 100 NS Inj 1,000 ML @ 125 mls/hr IV 2000 / 2000 1000 / 1000 .CONT .Q8H [facility] Rx#:[id number] Zosyn 4.5 GM Premix 4.5 gm In 200 / 200 100 / 100 100 / 100 100 ml @ 200 mls/hr IV.SIG Q6H [facility] Rx#:[id number] Other: # Voids 10 2 # Bowel Movements 1 <Yun Bautista - 10/09/17 10:24> Narrative: GENERAL: Patient lying in bed comfortable. No acute distress. SKIN: Warm and dry. CARDIOVASCULAR: Regular rate and rhythm. RESPIRATORY: No accessory muscle use. Clear to auscultation. Breath sounds equal bilaterally. GASTROINTESTINAL: Abdomen soft, nondistended. Normoactive bowel sounds. Mildly tender to deep palpation greatest in the lower quadrants. MUSCULOSKELETAL: Extremities without clubbing, cyanosis, or edema. No obvious deformities. No calf tenderness on palpation. NEUROLOGICAL: Awake and alert. Normal speech. PSYCHIATRIC: Appropriate mood and affect; insight and judgment normal. <Yun Bautista - 10/09/17 10:24> Assessment and Plan - Assessment (1) Colonic diverticular abscess Code(s): K57.20 - Diverticulitis of large intestine with perforation and abscess without bleeding Status: Acute (2) ELAINE (acute kidney injury) Code(s): N17.9 - Acute kidney failure, unspecified Status: Acute (3) Hypertension Code(s): I10 - Essential (primary) hypertension Status: Acute (4) Nutrition, metabolism, and development symptoms Code(s): R63.8 - Other symptoms and signs concerning food and fluid intake Status: Acute <Facundo Meeks - 10/09/17 17:52> (1) Colonic diverticular abscess Code(s): K57.20 - Diverticulitis of large intestine with perforation and abscess without bleeding Status: Acute Plan: Diverticulitis with abscess formation after failing outpatient treatment with Cipro and Flagyl Patient improving clinically with decreased abdominal pain. General surgery consulted-appreciate recs: at this time, unable to drain with IR , will continue conservative treatment with IV antibiotics and consider repeat CT in the morning. Monitor for further abnormalities in bowel movements such as further passage of white particulates. Antibiotics: Zosyn 4.5 g IV every 6 hoursday #3, will continue to monitor kidney function. Creatinine stable Tylenol 650 mg p.o. every 6 hours as needed for fever Pain control with [place] and Dilaudid IV Full liquid diet Normal saline at 125 mL/hour (2) ELAINE (acute kidney injury) Code(s): N17.9 - Acute kidney failure, unspecified Status: Acute Plan: Likely due to decreased oral intake and infection Normal saline running at 125 mL/hour and status post bolus of normal saline in the emergency department Creatinine stable this morning Continue to monitor daily BMP It appears the patient's baseline creatinine is approximately 1.2 (3) Hypertension Code(s): I10 - Essential (primary) hypertension Status: Acute Plan: Continue home medication of metoprolol 25mg daily (4) Nutrition, metabolism, and development symptoms Code(s): R63.8 - Other symptoms and signs concerning food and fluid intake Status: Acute Plan: Fluids: NS @ 125mls/hr Electrolytes: monitor, replace PRN Nutrition: Full liquid diet DVT ppx: early ambulation <Yun Bautista - 10/09/17 10:15> - Assessment and Plan Discussed Condition With: No Meeks and Osman <Yun Bautista - 10/09/17 10:24> Discharge Planning: D/c home likely within next 72 hours pending surgery recommendations <Yun Bautista - 10/09/17 10:24> - Attending Attestation Patient examined independently and case discussed with resident physicians I have read the above note and agree with the assessment/plan as discussed with me I was involved in all medical decision making for this patient Facundo Jeanna, MD <Facundo Meeks - 10/09/17 17:52>
--- NOTE | 2017-10-09 13:15 | P.PNGS ---
Subjective Interval history: Pain much better and he has not required pain medication since last night. Tolerating fulls and has had bowel movts. WBC 11. Physical Exam Vital signs: Vital Signs 10/08/17 16:00 10/08/17 20:00 10/09/17 00:00 Temperature 97.7 F 98.9 F 98.6 F Pulse Rate 76 69 74 Respiratory Rate 17 22 20 Blood Pressure 146/70 H 117/60 139/72 Pulse Oximetry 97 95 97 10/09/17 08:00 10/09/17 12:00 Temperature 97.7 F 97.6 F Pulse Rate 74 57 L Respiratory Rate 16 18 Blood Pressure 153/88 H 130/69 Pulse Oximetry 95 Intake & Output 10/08/17 10/09/17 10/09/17 18:59 06:59 18:59 Intake Total 2200 / 2200 1100 / 1100 1100 / 1100 Balance 2200 / 2200 1100 / 1100 1100 / 1100 Intake: IV 2200 / 2200 1100 / 1100 1100 / 1100 NS Inj 1,000 ML @ 125 mls/hr IV 2000 / 2000 1000 / 1000 1000 / 1000 .CONT .Q8H [facility] Rx#:[id number] Zosyn 4.5 GM Premix 4.5 gm In 200 / 200 100 / 100 100 / 100 100 ml @ 200 mls/hr IV.SIG Q6H [facility] Rx#:[id number] Other: # Voids 10 2 # Bowel Movements 1 Narrative: NAD Abd: soft, LLQ mild tenderness to deep palpation Assessment and Plan - Assessment (1) Colonic diverticular abscess Code(s): K57.20 - Diverticulitis of large intestine with perforation and abscess without bleeding Status: Acute - Plan Diverticulitis with abscess, improving. Cont IV Zosyn. Cont fulls. CT a/p tomorrow am.
[2017-10-10 03:59] LABS: Hematocrit 40.4 % (39.0-51.0); Hemoglobin 13.9 gm/dL (13.0-17.0); Mean Corpuscular HGB Conc 34.3 % (32.0-36.0); Mean Corpuscular Hemoglobin 29.6 pg (27.0-34.0); Mean Corpuscular Volume 86.4 fL (80.0-100.0); Platelet Count 350 th/mm3 (150-450); Red Blood Count 4.68 mil/mm3 (4.50-5.90); Red Cell Distribution Width 13.2 % (11.6-17.2); White Blood Count 9.2 th/mm3 (4.0-11.0)
[2017-10-10 04:12] LABS: Calcium 9.1 mg/dL (8.5-10.1); Carbon Dioxide 26.4 meq/L (21.0-32.0); Potassium 3.7 meq/L (3.5-5.1)
[2017-10-10] MEDS: Piperacil/Tazo 4.5 GM Premix 4.5 GM/100 ML BAG IV.SIG SCH ×4 (05:20→18:14)
[2017-10-10] MEDS: Sod Chloride 0.9% Inj 1,000 ML IV.CONT SCH ×3 (05:20→20:16)
[2017-10-10] MEDS: Metoprolol Tartrate 25 MG Tablet PO SCH (08:42)
[2017-10-10] MEDS: Senna/Docusate Sodium 8.6/50 MG Tablet PO SCH ×2 (08:43→20:18)
--- NOTE | 2017-10-10 09:25 | CT ---
EXAM DATE: 10/10/2017 9:17 AM EDT AGE/SEX: 52 years / Male INDICATIONS: Patient with abdominal pain and acute diverticulitis. Patient had prior abnormal CT dem onstrating acute diverticulitis and apparent early abscess formation. CLINICAL DATA: This is the patient's subsequent encounter. Patient reports that signs and symptoms h ave been present for 3 days and indicates a pain score of 0/10. MEDICAL/SURGICAL HISTORY: Diverticulitis. Hypertension. Diverticular abscess. None. ORAL CONTRAST: No oral contrast ingested. RADIATION DOSE: 7.95 CTDI (mGy) COMPARISON: [facility] – [place] ABDOMEN & PELVIS W CONTRAST, 10/07/2017. . TECHNIQUE: Multiple contiguous axial images were obtained through the abdomen and pelvis following b olus infusion of 92 ml Omnipaque 350 (iohexol) nonionic water-soluble contrast as a single exam dos e. No oral contrast ingested. Using automated exposure control and adjustment of the mA and/or kV ac cording to patient size, radiation dose was kept as low as reasonably achievable to obtain optimal di agnostic quality images. DICOM format image data is available electronically for review and comparis on. FINDINGS: Lower Lungs: The visualized lower lungs are clear. Liver: The liver has a homogeneous density without space-occupying lesion. There is no dilation of th e biliary tree. Spleen: Homogeneous density without enlargement. Pancreas: Unremarkable without mass or calcification. Kidneys: Normal in size and shape. No evidence of a solid mass or hydronephrosis. Cysts are again no jennifer in the left kidney. Adrenal Glands: Unremarkable. Aorta: The aorta and proximal iliac vessels are grossly unremarkable without aneurysmal dilation. Bowel/Mesentery: Bowel wall thickening and mild inflammatory change are again noted involving the pr oximal sigmoid colon with multiple diverticuli. The small gas and fluid collection adjacent to the up per area of inflammatory change has decreased in size with only small gas bubble now identified in th is region measuring up to approximately 1 cm. Surrounding inflammatory change Abdominal Wall: Intact. Retroperitoneum: No evidence of adenopathy in the retrocrural, para-aortic, or deep pelvic regions. Bladder: Contours are smooth. Reproductive Organs: No abnormal masses or calcifications seen. Inguinal: The inguinal region is unremarkable without evidence of adenopathy. Bony Structures: Unremarkable. 1. Interval decrease in inflammatory change as well as the patient noted small gas and fluid collect ion consistent with mild improvement in diverticulitis. 2. No new collections identified. The bowel gas pattern remains nonobstructive. Electronically signed by: Chauncey Rinaldi MD 10/10/2017 9:23 AM EDT
--- NOTE | 2017-10-10 10:46 | P.PNGS ---
Subjective Interval history: Pain continues to improve and he's tolerating full liquids. WBC normalized. Physical Exam Vital signs: Vital Signs 10/09/17 12:00 10/09/17 16:00 10/09/17 20:00 Temperature 97.6 F 98.1 F 97.7 F Pulse Rate 57 L 57 L 61 Respiratory Rate 18 16 18 Blood Pressure 130/69 121/57 L 139/76 Pulse Oximetry 95 97 97 10/10/17 00:00 10/10/17 08:00 Temperature 97.9 F 97.9 F Pulse Rate 58 L 57 L Respiratory Rate 18 18 Blood Pressure 137/66 143/81 H Pulse Oximetry 96 97 Intake & Output 10/09/17 10/10/17 10/10/17 18:59 06:59 18:59 Intake Total 2140 / 2140 2420 / 2420 Balance 2140 / 2140 2420 / 2420 Weight 77.1 kg Intake: IV 1300 / 1300 2100 / 2100 NS Inj 1,000 ML @ 125 mls/hr IV 1000 / 1000 2000 / 2000 .CONT .Q8H [facility] Rx#:[id number] Zosyn 4.5 GM Premix 4.5 gm In 300 / 300 100 / 100 100 ml @ 200 mls/hr IV.SIG Q6H [facility] Rx#:[id number] Oral 840 / 840 320 / 320 Other: # Voids 4 2 # Bowel Movements 2 Narrative: NAD Abd: soft, mild LLQ ttp Assessment and Plan - Assessment (1) Colonic diverticular abscess Code(s): K57.20 - Diverticulitis of large intestine with perforation and abscess without bleeding Status: Acute - Plan Diverticulitis with abscess, improving. I recommend to continue Zosyn IV for two more days. He failed outpatient oral cipro/flagyl and developed an abscess on that regimen. Recommend when discharged to use augmentin.
--- NOTE | 2017-10-10 10:58 | P.PNFP ---
Subjective Interval history: Mr. Meyers reports no overnight events. Reports improved abdominal pain only minimal in the lower quadrants. Is having some diarrhea but denies any blood in stool or further passage of white particles. He denies nausea, vomiting, chest pain, shortness of breath, difficulty urinating, chills. <Yun Bautista - 10/10/17 10:58> Results - Labs Result diagrams: 10/10/17 02:43 10/10/17 02:43 <Facundo Meeks - 10/10/17 13:17> Abnormal lab results 10/10/17 Range/Units 02:43 Estimated GFR 67 L (>89) mL/min Short CBC 10/10/17 Range/Units 02:43 WBC 9.2 (4.0-11.0) th/mm3 Hgb 13.9 (13.0-17.0) gm/dL Hct 40.4 (39.0-51.0) % Plt Count 350 (150-450) th/mm3 [facility] 10/10/17 02:43 Sodium 143 Potassium 3.7 Chloride 107 Carbon Dioxide 26.4 BUN 7 Creatinine 1.14 Calcium 9.1 <Facundo Meeks - 10/10/17 13:17> Abnormal lab results 10/10/17 Range/Units 02:43 Estimated GFR 67 L (>89) mL/min Short CBC 10/10/17 Range/Units 02:43 WBC 9.2 (4.0-11.0) th/mm3 Hgb 13.9 (13.0-17.0) gm/dL Hct 40.4 (39.0-51.0) % Plt Count 350 (150-450) th/mm3 [facility] 10/10/17 02:43 Sodium 143 Potassium 3.7 Chloride 107 Carbon Dioxide 26.4 BUN 7 Creatinine 1.14 Calcium 9.1 <Yun Bautista 10/10/17 10:58> - Imaging Impressions Abdomen/Pelvis CT 10/10/17 06:00 CONCLUSION: <Facundo Meeks 10/10/17 13:17> Impressions Abdomen/Pelvis CT 10/10/17 06:00 CONCLUSION: <Yun Bautista - 10/10/17 10:58> Physical Exam Vital signs: Vital Signs 10/09/17 16:00 10/09/17 20:00 10/10/17 00:00 Temperature 98.1 F 97.7 F 97.9 F Pulse Rate 57 L 61 58 L Respiratory Rate 16 18 18 Blood Pressure 121/57 L 139/76 137/66 Pulse Oximetry 97 97 96 10/10/17 08:00 Temperature 97.9 F Pulse Rate 57 L Respiratory Rate 18 Blood Pressure 143/81 H Pulse Oximetry 97 Intake & Output 10/09/17 10/10/17 10/10/17 18:59 06:59 18:59 Intake Total 2140 / 2140 2420 / 2420 Balance 2139 / 2139 2420 / 2420 Weight 77.1 kg Intake: IV 1300 / 1300 2099 / 2099 NS Inj 1,000 ML @ 125 mls/hr IV 1000 / 1000 1999 .CONT .Q8H [facility] Rx#:[id number] Zosyn 4.5 GM Premix 4.5 gm In 300 / 300 100 / 100 100 ml @ 200 mls/hr IV.SIG Q6H [facility] Rx#:[id number] Oral 840 / 840 320 / 320 Other: # Voids 4 2 # Bowel Movements 2 <Facundo Meeks - 10/10/17 13:17> Vital Signs 10/09/17 12:00 10/09/17 16:00 10/09/17 20:00 Temperature 97.6 F 98.1 F 97.7 F Pulse Rate 57 L 57 L 61 Respiratory Rate 18 16 18 Blood Pressure 130/69 121/57 L 139/76 Pulse Oximetry 95 97 97 10/10/17 00:00 10/10/17 08:00 Temperature 97.9 F 97.9 F Pulse Rate 58 L 57 L Respiratory Rate 18 18 Blood Pressure 137/66 143/81 H Pulse Oximetry 96 97 Intake & Output 10/09/17 10/10/17 10/10/17 18:59 06:59 18:59 Intake Total 2140 / 2140 2420 / 2420 Balance 2140 2140 2420 / 2420 Weight 77.1 kg Intake: IV 1300 / 1300 2099 / 2099 NS Inj 1,000 ML @ 125 mls/hr IV 1000 / 1000 1999 .CONT .Q8H [facility] Rx#:[id number] Zosyn 4.5 GM Premix 4.5 gm In 300 / 300 100 / 100 100 ml @ 200 mls/hr IV.SIG Q6H [facility] Rx#:[id number] Oral 840 / 840 320 / 320 Other: # Voids 4 2 # Bowel Movements 2 <Yun Bautista Jacque - 10/10/17 10:58> Narrative: Narrative: GENERAL: Patient lying in bed comfortable. No acute distress. SKIN: Warm and dry. CARDIOVASCULAR: Regular rate and rhythm. RESPIRATORY: No accessory muscle use. Clear to auscultation. Breath sounds equal bilaterally. GASTROINTESTINAL: Abdomen soft, nondistended. Normoactive bowel sounds. Mildly tender to deep palpation greatest in the left lower quadrant. MUSCULOSKELETAL: Extremities without clubbing, cyanosis, or edema. No obvious deformities. No calf tenderness on palpation. NEUROLOGICAL: Awake and alert. Normal speech. PSYCHIATRIC: Appropriate mood and affect; insight and judgment normal. <Yun Bautista - 10/10/17 11:02> Assessment and Plan - Assessment (1) Colonic diverticular abscess Code(s): K57.20 - Diverticulitis of large intestine with perforation and abscess without bleeding Status: Acute (2) ELAINE (acute kidney injury) Code(s): N17.9 - Acute kidney failure, unspecified Status: Acute (3) Hypertension Code(s): I10 - Essential (primary) hypertension Status: Acute (4) Nutrition, metabolism, and development symptoms Code(s): R63.8 - Other symptoms and signs concerning food and fluid intake Status: Acute <Facundo Meeks - 10/10/17 13:17> (1) Colonic diverticular abscess Code(s): K57.20 - Diverticulitis of large intestine with perforation and abscess without bleeding Status: Acute Plan: Diverticulitis with abscess formation after failing outpatient treatment with Cipro and Flagyl Patient improving clinically with decreased abdominal pain. CT from this morning showed decreased inflammation and decreased size of abscess. General surgery consulted-appreciate recs: at this time, unable to drain with IR , will continue conservative treatment with IV antibiotics 2 more days and DC on oral antibiotics (Augmentin) Monitor for further abnormalities in bowel movements such as further passage of white particulates. Antibiotics: Zosyn 4.5 g IV every 6 hoursday #4, will continue to monitor kidney function. Creatinine stable Tylenol 650 mg p.o. every 6 hours as needed for fever Pain control with Melrude and Dilaudid IV Full liquid diet Normal saline at 125 mL/hour (2) ELAINE (acute kidney injury) Code(s): N17.9 - Acute kidney failure, unspecified Status: Acute Plan: Likely due to decreased oral intake and infection Normal saline running at 125 mL/hour and status post bolus of normal saline in the emergency department Creatinine stable this morning Continue to monitor daily BMP It appears the patient's baseline creatinine is approximately 1.2 (3) Hypertension Code(s): I10 - Essential (primary) hypertension Status: Acute Plan: Continue home medication of metoprolol 25mg daily (4) Nutrition, metabolism, and development symptoms Code(s): R63.8 - Other symptoms and signs concerning food and fluid intake Status: Acute Plan: Fluids: NS @ 125mls/hr Electrolytes: monitor, replace PRN Nutrition: Full liquid diet DVT ppx: early ambulation <Yun Bautista 10/10/17 10:59> - Assessment and Plan Discharge Planning: DC home in 2 days with p.o. antibiotics. <Yun Bautista 10/10/17 11:02> - Attending Attestation I have independently examined the patient and discussed the case with resident physicians I have read the above note and agree with the assessment/plan as discussed with me I was involved in all medical decision making for this patient Facundo Meeks MD <Facundo Meeks - 10/10/17 13:17>
[2017-10-10] MEDS: Acetaminophen 325 MG Tablet PO PRN (16:59)
[2017-10-11] MEDS: Piperacil/Tazo 4.5 GM Premix 4.5 GM/100 ML BAG IV.SIG SCH ×4 (00:11→16:58)
[2017-10-11] MEDS: Sod Chloride 0.9% Inj 1,000 ML IV.CONT SCH ×3 (02:10→09:42)
[2017-10-11 08:14] LABS: Baso % (Auto) 0.6 % (0.0-2.0); Eos # (Auto) 0.2 th/mm3 (0.0-0.4); Eos % (Auto) 3.4 % (0.0-4.0); Hematocrit 40.6 % (39.0-51.0); Hemoglobin 14.1 gm/dL (13.0-17.0); Lymph # (Auto) 1.6 th/mm3 (1.0-4.8); Lymph % (Auto) 23.4 % (9.0-44.0); Mean Corpuscular HGB Conc 34.6 % (32.0-36.0); Mean Corpuscular Hemoglobin 29.8 pg (27.0-34.0); Mean Corpuscular Volume 86.2 fL (80.0-100.0); Mean Platelet Volume 7.2 fL (7.0-11.0); Mono # (Auto) 0.5 th/mm3 (0.0-0.9); Mono % (Auto) 7.3 % (0.0-8.0); Neut # (Auto) 4.4 th/mm3 (1.8-7.7); Neut % (Auto) 65.3 % (16.0-70.0); Platelet Count 407 th/mm3 (150-450); Red Blood Count 4.71 mil/mm3 (4.50-5.90); Red Cell Distribution Width 13.3 % (11.6-17.2); White Blood Count 6.7 th/mm3 (4.0-11.0)
[2017-10-11 08:40] LABS: Calcium 9.1 mg/dL (8.5-10.1); Carbon Dioxide 27.8 meq/L (21.0-32.0); Potassium 3.7 meq/L (3.5-5.1)
--- NOTE | 2017-10-11 09:14 | P.PNFP ---
Subjective Interval history: Mr Loera had no overnight events. He does endorse concern regarding his blood pressure (high of 173/87 yesterday) states that he usually takes a blood pressure medication twice per day and has only been taking it once per day in the hospital. He does report 3 watery bowel movements yesterday he denies any blood in the stool. He reports concern concerning a "thin film" on his tongue. He denies chest pain, shortness of breath, nausea, vomiting, difficulty with urination, lightheadedness. <Yun Bautista - 10/11/17 09:15> Results - Labs Result diagrams: 10/11/17 05:04 10/11/17 05:04 <Facundo Meeks - 10/11/17 13:31> Abnormal lab results 10/11/17 10/11/17 Range/Units 05:04 10:50 Estimated GFR 64 L (>89) mL/min Random Glucose 71 L (74-106) mg/dL Stl C.difficile Tox PCR Positive H (Negative) Short CBC 10/11/17 Range/Units 05:04 WBC 6.7 (4.0-11.0) th/mm3 Hgb 14.1 (13.0-17.0) gm/dL Hct 40.6 (39.0-51.0) % Plt Count 407 (150-450) th/mm3 [facility] 10/11/17 05:04 Sodium 142 Potassium 3.7 Chloride 107 Carbon Dioxide 27.8 BUN 8 Creatinine 1.18 Calcium 9.1 <Facundo Meeks - 10/11/17 13:31> Abnormal lab results 10/11/17 Range/Units 05:04 Estimated GFR 64 L (>89) mL/min Random Glucose 71 L (74-106) mg/dL Short CBC 10/11/17 Range/Units 05:04 WBC 6.7 (4.0-11.0) th/mm3 Hgb 14.1 (13.0-17.0) gm/dL Hct 40.6 (39.0-51.0) % Plt Count 407 (150-450) th/mm3 [facility] 10/11/17 05:04 Sodium 142 Potassium 3.7 Chloride 107 Carbon Dioxide 27.8 BUN 8 Creatinine 1.18 Calcium 9.1 <Yun Bautista - 10/11/17 09:14> - Imaging Impressions Abdomen/Pelvis CT 10/10/17 06:00 CONCLUSION: <Yun Bautista E - 10/11/17 09:14> Physical Exam Vital signs: Vital Signs 10/10/17 16:00 10/10/17 16:53 10/10/17 20:00 Temperature 97.3 F L 97.9 F Pulse Rate 55 L 58 L Respiratory Rate 18 19 Blood Pressure 173/87 H 158/80 H 131/77 Pulse Oximetry 97 96 10/11/17 00:00 10/11/17 08:00 10/11/17 12:00 Temperature 97.3 F L 97.8 F 98.4 F Pulse Rate 52 L 54 L 50 L Respiratory Rate 16 18 18 Blood Pressure 139/80 160/81 H 139/79 Pulse Oximetry 98 98 97 Intake & Output 10/10/17 10/11/17 10/11/17 18:59 06:59 18:59 Intake Total 1200 / 1200 2200 / 2200 1000 / 1000 Balance 1200 / 1200 2200 / 2200 1000 / 1000 Weight 77.1 kg Intake: IV 1200 / 1200 1300 / 1300 1000 / 1000 NS Inj 1,000 ML @ 125 mls/hr IV 1000 / 1000 1000 / 1000 1000 / 1000 .CONT .Q8H [facility] Rx#:[id number] Zosyn 4.5 GM Premix 4.5 gm In 200 / 200 300 / 300 100 ml @ 200 mls/hr IV.SIG Q6H [facility] Rx#:[id number] Oral 900 / 900 Other: # Voids 2 <Facundo Meeks - 10/11/17 13:31> Vital Signs 10/10/17 12:00 10/10/17 16:00 10/10/17 16:53 Temperature 97.6 F 97.3 F L Pulse Rate 62 55 L Respiratory Rate 19 18 Blood Pressure 132/81 173/87 H 158/80 H Pulse Oximetry 96 97 10/10/17 20:00 10/11/17 00:00 Temperature 97.9 F 97.3 F L Pulse Rate 58 L 52 L Respiratory Rate 19 16 Blood Pressure 131/77 139/80 Pulse Oximetry 96 98 Intake & Output 10/10/17 10/11/17 10/11/17 18:59 06:59 18:59 Intake Total 1200 / 1200 2100 / 2100 Balance 1200 / 1200 2100 / 2100 Weight 77.1 kg Intake: IV 1200 / 1200 1200 / 1200 NS Inj 1,000 ML @ 125 mls/hr IV 1000 / 1000 1000 / 1000 .CONT .Q8H [facility] Rx#:[id number] Zosyn 4.5 GM Premix 4.5 gm In 200 / 200 200 / 200 100 ml @ 200 mls/hr IV.SIG Q6H [facility] Rx#:[id number] Oral 900 / 900 Other: # Voids 2 <Yun Bautista - 10/11/17 09:14> Narrative: Narrative: GENERAL: Patient lying in bed comfortable. No acute distress. SKIN: Warm and dry. Oropharynx: [place] and moist mucous membranes. Thin film on tongue. CARDIOVASCULAR: Regular rate and rhythm. RESPIRATORY: No accessory muscle use. Clear to auscultation. Breath sounds equal bilaterally. GASTROINTESTINAL: Abdomen soft, nondistended. Normoactive bowel sounds. Nontender MUSCULOSKELETAL: Extremities without clubbing, cyanosis, or edema. No obvious deformities. No calf tenderness on palpation. NEUROLOGICAL: Awake and alert. Normal speech. PSYCHIATRIC: Appropriate mood and affect; insight and judgment normal. <Yun Bautista - 10/11/17 09:14> Assessment and Plan - Assessment (1) Colonic diverticular abscess Code(s): K57.20 - Diverticulitis of large intestine with perforation and abscess without bleeding Status: Acute (2) Diarrhea Code(s): R19.7 - Diarrhea, unspecified Status: Acute (3) ELAINE (acute kidney injury) Code(s): N17.9 - Acute kidney failure, unspecified Status: Acute (4) Hypertension Code(s): I10 - Essential (primary) hypertension Status: Acute (5) Nutrition, metabolism, and development symptoms Code(s): R63.8 - Other symptoms and signs concerning food and fluid intake Status: Acute <Facundo Meeks - 10/11/17 13:31> (1) Colonic diverticular abscess Code(s): K57.20 - Diverticulitis of large intestine with perforation and abscess without bleeding Status: Acute Plan: Diverticulitis with abscess formation after failing outpatient treatment with Cipro and Flagyl Patient improving clinically with decreased abdominal pain. CT from yesterday showed decreased inflammation and decreased size of abscess. General surgery consulted-appreciate recs: at this time, unable to drain with IR , will continue conservative treatment with IV antibiotics 1 more day and DC on oral antibiotics (Augmentin) Antibiotics: Zosyn 4.5 g IV every 6 hoursday #4, will continue to monitor kidney function. Creatinine stable Tylenol 650 mg p.o. every 6 hours as needed for fever Pain control with [place] and Dilaudid IV Full liquid diet Normal saline at 125 mL/hour (2) Diarrhea Code(s): R19.7 - Diarrhea, unspecified Status: Acute Plan: Adverse effect medication versus infectious etiology. -Patient started on lactobacillus -C. difficile cultures ordered -Continue hydration (3) ELAINE (acute kidney injury) Code(s): N17.9 - Acute kidney failure, unspecified Status: Acute Plan: Likely due to decreased oral intake and infection Normal saline running at 125 mL/hour and status post bolus of normal saline in the emergency department Creatinine stable this morning Continue to monitor daily BMP It appears the patient's baseline creatinine is approximately 1.2 (4) Hypertension Code(s): I10 - Essential (primary) hypertension Status: Acute Plan: Increased to home dosage of metoprolol 25 twice daily. (5) Nutrition, metabolism, and development symptoms Code(s): R63.8 - Other symptoms and signs concerning food and fluid intake Status: Acute Plan: Fluids: NS @ 125mls/hr Electrolytes: monitor, replace PRN Nutrition: Advance diet to regular DVT ppx: early ambulation <Yun Bautista - 10/11/17 10:53> - Assessment and Plan Discussed Condition With: Drs. Meeks and Osman <Yun Bautista - 10/11/17 09:15> Discharge Planning: DC home in 1 day with p.o. antibiotics. <Yun Bautista - 10/11/17 09:15> - Attending Attestation Patient examined independently and case discussed with resident physicians I have read the above note and agree with the assessment/plan as discussed with me I was involved in all medical decision making for this patient Facundo Meeks MD <Facundo Meeks - 10/11/17 13:31>
[2017-10-11] MEDS: Metoprolol Tartrate 50 MG Tablet PO SCH ×2 (09:23→20:18)
[2017-10-11] MEDS: Senna/Docusate Sodium 8.6/50 MG Tablet PO SCH ×2 (09:23→20:12)
[2017-10-11] MEDS: metroNIDAZOLE 500 MG Tablet PO SCH (19:03)
[2017-10-12] MEDS: Piperacil/Tazo 4.5 GM Premix 4.5 GM/100 ML BAG IV.SIG SCH ×3 (00:02→11:01)
[2017-10-12] MEDS: metroNIDAZOLE 500 MG Tablet PO SCH (05:49)
[2017-10-12 07:44] LABS: Hematocrit 41.3 % (39.0-51.0); Hemoglobin 14.1 gm/dL (13.0-17.0); Mean Corpuscular HGB Conc 34.1 % (32.0-36.0); Mean Corpuscular Hemoglobin 29.5 pg (27.0-34.0); Mean Corpuscular Volume 86.4 fL (80.0-100.0); Mean Platelet Volume 6.8 fL (7.0-11.0); Platelet Count 398 th/mm3 (150-450); Red Blood Count 4.78 mil/mm3 (4.50-5.90); Red Cell Distribution Width 13.6 % (11.6-17.2); White Blood Count 8.1 th/mm3 (4.0-11.0)
[2017-10-12 07:53] LABS: Calcium 9.1 mg/dL (8.5-10.1); Carbon Dioxide 24.4 meq/L (21.0-32.0); Potassium 4.1 meq/L (3.5-5.1)
[2017-10-12] MEDS: Senna/Docusate Sodium 8.6/50 MG Tablet PO SCH (09:27)
[2017-10-12] MEDS: Metoprolol Tartrate 50 MG Tablet PO SCH (09:27)
[2017-10-12 09:33] VITALS: BP 151/84; PULSE 58; RESP 17; TEMP 97.9; O2SAT 97
--- NOTE | 2017-10-12 10:13 | P.PNFP ---
Subjective Interval history: Patient seen and examined this morning. No acute events overnight. Reports feeling well this morning. No pain. Denies any abdominal pain. No fever chills. Had 2 bowel movements in the last 24 hours. Last bowel movement was soft, no diarrhea. Denies any nausea or vomiting, chest pain, shortness of breath, leg pain. <Jay Comer - 10/12/17 10:13> Results - Labs Result diagrams: 10/12/17 06:22 10/12/17 06:22 <Facundo Meeks - 10/12/17 11:35> Abnormal lab results 10/11/17 10/12/17 10/12/17 Range/Units 10:50 06:22 06:22 MPV 6.8 L (7.0-11.0) fL Chloride 109 H (98-107) meq/L Creatinine 1.36 H (0.60-1.30) mg/dL Estimated GFR 55 L (>89) mL/min Stl C.difficile Tox PCR Positive H (Negative) Short CBC 10/12/17 Range/Units 06:22 WBC 8.1 (4.0-11.0) th/mm3 Hgb 14.1 (13.0-17.0) gm/dL Hct 41.3 (39.0-51.0) % Plt Count 398 (150-450) th/mm3 BMP 10/12/17 06:22 Sodium 140 Potassium 4.1 Chloride 109 H Carbon Dioxide 24.4 BUN 11 Creatinine 1.36 H Calcium 9.1 <Facundo Meeks - 10/12/17 11:35> Abnormal lab results 10/11/17 10/12/17 10/12/17 Range/Units 10:50 06:22 06:22 MPV 6.8 L (7.0-11.0) fL Chloride 109 H (98-107) meq/L Creatinine 1.36 H (0.60-1.30) mg/dL Estimated GFR 55 L (>89) mL/min Stl C.difficile Tox PCR Positive H (Negative) Short CBC 10/12/17 Range/Units 06:22 WBC 8.1 (4.0-11.0) th/mm3 Hgb 14.1 (13.0-17.0) gm/dL Hct 41.3 (39.0-51.0) % Plt Count 398 (150-450) th/mm3 BMP 10/12/17 06:22 Sodium 140 Potassium 4.1 Chloride 109 H Carbon Dioxide 24.4 BUN 11 Creatinine 1.36 H Calcium 9.1 <Jay Comer - 10/12/17 10:13> - Imaging Abdomen/Pelvis CT 10/07/17 07:55 CONCLUSION: 1. Findings characteristic of acute diverticulitis involving the sigmoid colon with apparent early abscess formation with air-fluid level. 2. Multiple left renal cysts. CT Consultation 10/08/17 00:00 CONCLUSION: 1. Consultation for possible percutaneous drainage of pericolic abscess was performed. The pericolic abscess is small in size and is surrounded by inflamed loops of small and large bowel with no adequate window for drainage at this time. The findings were discussed with Dr. Carlson at the time of the consultation. Abdomen/Pelvis CT 10/10/17 06:00 CONCLUSION: <KassiesantyJay Bradford - 10/12/17 10:13> Physical Exam Vital signs: Vital Signs 10/11/17 12:00 10/11/17 16:00 10/11/17 20:00 Temperature 98.4 F 98.0 F 98.5 F Pulse Rate 50 L 58 L 61 Respiratory Rate 18 17 18 Blood Pressure 139/79 153/85 H 130/77 Pulse Oximetry 97 97 97 10/12/17 00:00 10/12/17 04:00 10/12/17 08:00 Temperature 97.4 F L 98.1 F 97.9 F Pulse Rate 59 L 61 58 L Respiratory Rate 18 20 17 Blood Pressure 126/75 130/74 151/84 H Pulse Oximetry 96 92 L 97 Intake & Output 10/11/17 10/12/17 10/12/17 18:59 06:59 18:59 Intake Total 3160 / 3160 340 / 340 100 / 100 Balance 3160 / 3160 340 / 340 100 / 100 Intake: IV 2200 / 2200 100 / 100 100 / 100 NS Inj 1,000 ML @ 125 mls/hr IV 1999 / 1999 .CONT .Q8H [facility] Rx#:[id number] Zosyn 4.5 GM Premix 4.5 gm In 200 / 200 100 / 100 100 / 100 100 ml @ 200 mls/hr IV.SIG Q6H [facility] Rx#:[id number] Oral 960 / 960 240 / 240 Other: # Voids 3 3 Date of Last Bowel Movement 10/11/17 # Bowel Movements 4 <Facundo Meeks - 10/12/17 11:35> Vital Signs 10/11/17 12:00 10/11/17 16:00 10/11/17 20:00 Temperature 98.4 F 98.0 F 98.5 F Pulse Rate 50 L 58 L 61 Respiratory Rate 18 17 18 Blood Pressure 139/79 153/85 H 130/77 Pulse Oximetry 97 97 97 10/12/17 00:00 10/12/17 04:00 10/12/17 08:00 Temperature 97.4 F L 98.1 F 97.9 F Pulse Rate 59 L 61 58 L Respiratory Rate 18 20 17 Blood Pressure 126/75 130/74 151/84 H Pulse Oximetry 96 92 L 97 Intake & Output 10/11/17 10/12/17 10/12/17 18:59 06:59 18:59 Intake Total 3160 / 3160 340 / 340 100 / 100 Balance 3160 / 3160 340 / 340 100 / 100 Intake: IV 2200 / 2200 100 / 100 100 / 100 NS Inj 1,000 ML @ 125 mls/hr IV 1999 / 1999 .CONT .Q8H [facility] Rx#:[id number] Zosyn 4.5 GM Premix 4.5 gm In 200 / 200 100 / 100 100 / 100 100 ml @ 200 mls/hr IV.SIG Q6H [facility] Rx#:[id number] Oral 960 / 960 240 / 240 Other: # Voids 3 3 # Bowel Movements 4 <KassiesantyJay Bradford - 10/12/17 10:13> Narrative: GENERAL: Patient lying in bed comfortable. No acute distress. CARDIOVASCULAR: Regular rate and rhythm. RESPIRATORY: No accessory muscle use. Clear to auscultation. Breath sounds equal bilaterally. GASTROINTESTINAL: Abdomen soft, nondistended. Normoactive bowel sounds. Nontender MUSCULOSKELETAL: Extremities without clubbing, cyanosis, or edema. No obvious deformities. NEUROLOGICAL: Awake and alert. Normal speech. PSYCHIATRIC: Appropriate mood and affect; insight and judgment normal. <SegnJay stacy - 10/12/17 10:13> Assessment and Plan - Assessment (1) Colonic diverticular abscess Code(s): K57.20 - Diverticulitis of large intestine with perforation and abscess without bleeding Status: Acute (2) C. difficile diarrhea Code(s): A04.72 - Enterocolitis due to Clostridium difficile, not specified as recurrent Status: Acute (3) ELAINE (acute kidney injury) Code(s): N17.9 - Acute kidney failure, unspecified Status: Acute (4) Hypertension Code(s): I10 - Essential (primary) hypertension Status: Acute (5) Nutrition, metabolism, and development symptoms Code(s): R63.8 - Other symptoms and signs concerning food and fluid intake Status: Acute <Facundo Meeks - 10/12/17 11:35> (1) Colonic diverticular abscess Code(s): K57.20 - Diverticulitis of large intestine with perforation and abscess without bleeding Status: Acute Plan: Diverticulitis with abscess formation after failing outpatient treatment with Cipro and Flagyl Patient improving clinically with decreased abdominal pain. CT from yesterday showed decreased inflammation and decreased size of abscess. General surgery consulted-appreciate recs: at this time, unable to drain with IR , will continue conservative treatment with IV antibiotics and DC on oral antibiotics (Augmentin) Antibiotics: Zosyn 4.5 g IV every 6 hoursday #5, will continue to monitor kidney function. Creatinine stable Tylenol 650 mg p.o. every 6 hours as needed for fever Pain control with [place] and Dilaudid IV Full liquid diet Normal saline at 125 mL/hour (2) C. difficile diarrhea Code(s): A04.72 - Enterocolitis due to Clostridium difficile, not specified as recurrent Status: Acute Plan: Positive for C. Diff -Patient started on lactobacillus -Started on Flagyl 400mg q8H (3) ELAINE (acute kidney injury) Code(s): N17.9 - Acute kidney failure, unspecified Status: Acute Plan: Likely due to decreased oral intake and infection Normal saline running at 125 mL/hour and status post bolus of normal saline in the emergency department Creatinine up to 1.36 this AM Continue to monitor daily BMP It appears the patient's baseline creatinine is approximately 1.2 (4) Hypertension Code(s): I10 - Essential (primary) hypertension Status: Acute Plan: Increased to home dosage of metoprolol 25 twice daily. (5) Nutrition, metabolism, and development symptoms Code(s): R63.8 - Other symptoms and signs concerning food and fluid intake Status: Acute Plan: Fluids: NS @ 125mls/hr Electrolytes: monitor, replace PRN Nutrition: Advance diet to regular DVT ppx: early ambulation <Jay Comer - 10/12/17 10:07> - Attending Attestation Patient examined independently from the resident physicians and case discussed with resident team I have read the above note and agree with the assessment/plan as discussed with me I was involved in all medical decision making for this patient Facundo Meeks MD <Facundo Meeks - 10/12/17 11:35>
--- NOTE | 2017-10-12 12:57 | P.PNGS ---
Subjective Interval history: States he is much improved. Has been having watery diarrhea. Tolerating soft diet. Physical Exam Vital signs: Vital Signs 10/11/17 16:00 10/11/17 20:00 10/12/17 00:00 Temperature 98.0 F 98.5 F 97.4 F L Pulse Rate 58 L 61 59 L Respiratory Rate 17 18 18 Blood Pressure 153/85 H 130/77 126/75 Pulse Oximetry 97 97 96 10/12/17 04:00 10/12/17 08:00 Temperature 98.1 F 97.9 F Pulse Rate 61 58 L Respiratory Rate 20 17 Blood Pressure 130/74 151/84 H Pulse Oximetry 92 L 97 Intake & Output 10/11/17 10/12/17 10/12/17 18:59 06:59 18:59 Intake Total 3160 / 3160 340 / 340 100 / 100 Balance 3160 / 3160 340 / 340 100 / 100 Intake: IV 2200 / 2200 100 / 100 100 / 100 NS Inj 1,000 ML @ 125 mls/hr IV 1999 / 1999 .CONT .Q8H [facility] Rx#:[id number] Zosyn 4.5 GM Premix 4.5 gm In 200 / 200 100 / 100 100 / 100 100 ml @ 200 mls/hr IV.SIG Q6H [facility] Rx#:[id number] Oral 960 / 960 240 / 240 Other: # Voids 3 3 Date of Last Bowel Movement 10/11/17 # Bowel Movements 4 Narrative: NAD Abd: soft, min ttp Assessment and Plan - Assessment (1) Colonic diverticular abscess Code(s): K57.20 - Diverticulitis of large intestine with perforation and abscess without bleeding Status: Acute - Plan Diverticulitis with abscess, recently diagnosed with c dif likely secondary to prolonged antibiotic use. Recommend dc home with 10 days augmentin. Soft diet. F/u with me in 10 days. Call if any increased abdominal pain or fevers.
--- NOTE | 2017-10-22 07:58 | P.DS ---
Date of admission: 10/07/17 12:26 Primary care physician: Vasu Best DO Brief History from admission: 52-year-old male presenting for abdominal pain and found to have diverticulitis with diverticular abscess on CT scan. He was seen in the emergency department 8 days ago for generalized abdominal pain and was diagnosed with diverticulitis. He was treated with Cipro and Flagyl and discharged, he noted some improvement while on the medication but completed his antibiotic course 4 days ago. Since that time he has noticed progression of his lower abdominal pain that he describes as sharp in nature that is worse with movement. He also endorses associated scrotal pain without swelling. He has noticed fevers up to 100.9F as well as decreased appetite and weight loss. He denies melena or hematochezia, denies chest pain or palpitations, denies nausea or vomiting, denies shortness of breath. DS: Diagnosis - Discharge Diagnosis (1) Colonic diverticular abscess Status: Acute (2) Diarrhea Status: Acute (3) ELAINE (acute kidney injury) Status: Acute (4) Hypertension Status: Acute (5) Nutrition, metabolism, and development symptoms Status: Acute DS: Medications - Discharge Medications Prescriptions: amoxicillin-pot clavulanate [Augmentin] 1 tab PO Q12H #20 tab metronidazole 500 mg PO Q8HR 14 Days #40 tab DS: Summary Hospital Course: Mr Loera was admitted on 10/07 for abdominal pain following failed outpatient treatment of diverticulitis. CT of the abdomen revealed evidence of early abscess formation. General surgery was consulted with recommendations for medical management and close f/u imaging. Patient was placed on Zosyn and IV NS. His abdominal pain began to improve. Repeat CT on 10/10 showed improvement of the diverticulitis and decreasign size of the abscess. He began to have increasing diarrhea on 10/11 and C difficile cultures came back positive. Mr. Loera was placed on Flagyl and probiotics with improvement in the diarrhea. He was d/c'd home on 10/12 on Flagyl and Augmentin with plans for possible surgery at a later date. - Time Spent with Patient Total time spent providing and/or coordinating discharge services: Less than 30 minutes - Quality: VTE Deep Vein Thrombosis/Pulmonary Embolism Present on Admission: No Results Procedures completed during hospitalization: None - Impressions ITS Impressions CT Consultation 10/08/17 00:00 CONCLUSION: 1. Consultation for possible percutaneous drainage of pericolic abscess was performed. The pericolic abscess is small in size and is surrounded by inflamed loops of small and large bowel with no adequate window for drainage at this time. The findings were discussed with Dr. Carlson at the time of the consultation. Abdomen/Pelvis CT 10/10/17 06:00 CONCLUSION: Discharge Plan - Discharge Disposition Patient Disposition: 01 Discharge Home - Discharge Condition Condition: Stable - Discharge Order Discharge Orders: Discharge Order (Routine); Ordered 10/12/17 Ordered By: Jay Comer - Discharge Details Anticipated Discharge Date: 10/12/17 - Physicians Team Primary Care Provider: Vasu Best Attending Provider: Facundo Meeks Other Providers: Star Carlson MD
== END 2017-10-12 11:54 | disposition home or self-care (01) ==
LOC: NEPC 07:08 → NEDA 12:26 → N07 14:23
PROVIDERS: ADMIT Family Medicine; ATTEND Family Medicine

== ENCOUNTER 2018-01-23 07:53 | Inpatient (IN) ==
[2018-01-23] MEDS ORDERED: Morphine Inj 4 MG/ML Vial IV.PUSH ONE ×2 (09:03→13:16)
--- NOTE | 2018-01-23 09:10 | ED ---
HPI General Chief Complaint: Abdominal Pain Stated Complaint: Stomach Pain Complaint/Doctor Sent Time Seen by Provider: 01/23/18 08:54 History of Present Illness HPI narrative: This patient complains of abdominal pain. Location is bilateral lower quadrant. Duration is 8.5 hours. Symptoms are moderate to severe in nature. This patient was hospitalized in October 2017 for diverticulitis with abscess. It was not amenable to drainage but with antibiotics as improved according to his last CT per patient. He was scheduled today for a follow-up colonoscopy. At midnight he started his colon prep. He drank the first dose without problem. After the second dose he developed lower abdominal pain which has progressed and persisted for the entire night. He went to his colonoscopy but they sent him to the ER and could not do it because of his abdominal pain. No alleviating factors. Symptoms seem to be exacerbated by colon Prep. Related Data Home Medications Medication Instructions Recorded Confirmed metoprolol tartrate [Lopressor] 25 mg PO BID 10/07/17 01/23/18 Allergies Allergy/AdvReac Type Severity Reaction Status Date / Time No Known Allergies Allergy Verified 01/23/18 08:10 Review of Systems ROS: all other systems reviewed are negative [facility] Family History Family History Mother Cancer of appendix Father Prostate cancer Social History Social History Substance History: No History of Abuse Second Hand Smoke Exposure: No Smoking Status: Former smoker Tobacco Type: Cigarettes How Often Do You Have a Drink Containing Alcohol: Monthly or less Recent Travel in [facility] within the Last 8 Weeks: No Recent Out of Country Travel within the Last 8 Weeks: No Immunization History Tetanus Immunization: Unsure Exam Narrative Exam Narrative: GENERAL: Well-nourished, well-developed patient with abdominal pain . SKIN: Focused skin assessment reveals no rash and nodules. Skin is Warm and dry. HEAD: Atraumatic. Normocephalic. EYES: Pupils equal and round. No scleral icterus. No injection or drainage. ENT: No nasal bleeding or discharge. Mucous membranes pink and moist. NECK: Trachea midline. No JVD. CARDIOVASCULAR: Regular rate and rhythm. No murmur appreciated. RESPIRATORY: No accessory muscle use. Clear to auscultation. Breath sounds equal bilaterally. GASTROINTESTINAL: Abdomen soft, bilateral lower quadrants are tender without rebound or guarding. nondistended. Hepatic and splenic margins not palpable. MUSCULOSKELETAL: No obvious deformities. No clubbing. No cyanosis. No edema. NEUROLOGICAL: Awake and alert. No obvious cranial nerve deficits. Motor grossly within normal limits. Normal speech. PSYCHIATRIC: Appropriate mood and affect; insight and judgment normal. Course Initial Documented Vital Signs Temperature 97.4 F L 01/23/18 08:07 Pulse Rate 85 01/23/18 08:07 Respiratory Rate 20 01/23/18 08:07 Blood Pressure 146/79 H 01/23/18 08:07 Pulse Oximetry 98 01/23/18 08:07 Last Documented Vital Signs Temperature 97.4 F L 01/23/18 08:07 Pulse Rate 79 01/23/18 10:54 Respiratory Rate 17 01/23/18 10:54 Blood Pressure 150/78 H 01/23/18 10:54 Pulse Oximetry 97 01/23/18 10:54 Medical Decision Making MDM Narrative Medical decision making narrative: This is a 53-year-old male with a 0.5 hours of abdominal pain in the lower quadrants after he started his colonoscopy prep. While he might have expected some degree of cramping, this pain is severe and persistent and his GI physician sent him here for evaluation. He has not had any fever. I have ordered abdominal pain workup to include labs and CT of abdomen and pelvis. I gave him a dose of morphine and Zofran. CT scan shows recurrent diverticulitis changes and a small abscess. Labs are reviewed and he has significant leukocytosis. Has required a second morphine dose. He will be admitted for IV antibiotics and further evaluation. I have reviewed with the medical residents who are admitting him. They will order the antibiotics. Medical Screen Exam Complete: Yes Emergency Medical Condition: Yes Differential Diagnosis Differential Diagnosis: Diverticulitis, colonic abscess, perforation Medical Records Medical records reviewed: Yes I reviewed the patient's medical records. Reviewed his October 2017 discharge summary when he was here for diverticulitis with abscess Lab Data Lab results reviewed: Yes I reviewed the patient's lab results. Lab results narrative: CBC shows leukocytosis and metabolic studies are normal Result diagrams: 01/23/18 08:50 01/23/18 08:50 Lab Results 01/23/18 01/23/18 01/23/18 Range/Units 08:50 08:50 08:50 WBC 19.4 H (4.0-11.0) th/mm3 RBC 5.53 (4.50-5.90) mil/mm3 Hgb 17.4 H (13.0-17.0) gm/dL Hct 50.8 (39.0-51.0) % MCV 91.8 (80.0-100.0) fL MCH 31.5 (27.0-34.0) pg MCHC 34.3 (32.0-36.0) % RDW 14.0 (11.6-17.2) % Plt Count 297 (150-450) th/mm3 MPV 7.4 (7.0-11.0) fL Neut % (Auto) 87.7 H (16.0-70.0) % Lymph % (Auto) 6.4 L (9.0-44.0) % [place] % (Auto) 5.5 (0.0-8.0) % Eos % (Auto) 0.2 (0.0-4.0) % Baso % (Auto) 0.2 (0.0-2.0) % Neut # (Auto) 17.0 H (1.8-7.7) th/mm3 Lymph # (Auto) 1.3 (1.0-4.8) th/mm3 [place] # (Auto) 1.1 H (0.0-0.9) th/mm3 Eos # (Auto) 0.0 (0.0-0.4) th/mm3 Baso # (Auto) 0.0 (0.0-0.2) th/mm3 WBC Differential . Differential Comment Auto diff final PT 10.1 (9.8-11.6) sec INR 1.0 Ratio APTT 28.8 (23.4-31.7) sec Sodium 140 (136-145) meq/L Potassium 4.3 (3.5-5.1) meq/L Chloride 105 (98-107) meq/L Carbon Dioxide 25.3 (21.0-32.0) meq/L Anion Gap 10 (5-15) meq/L BUN 14 (7-18) mg/dL Creatinine 1.14 (0.60-1.30) mg/dL Estimated GFR 67 L (>89) mL/min Random Glucose 99 (74-106) mg/dL Calcium 9.4 (8.5-10.1) mg/dL Total Bilirubin 1.2 H (0.2-1.0) mg/dL AST 19 (15-37) U/L ALT 41 (12-78) U/L Alkaline Phosphatase 108 (45-117) U/L Total Protein 8.3 H (6.4-8.2) g/dL Albumin 4.7 (3.4-5.0) g/dL Lipase 125 (73-393) U/L Imaging Data Attestation: I personally reviewed and interpreted this imaging study as follows : My impression: CT shows diverticulitis changes with a small abscess Radiologist's impression: Abdomen/Pelvis CT 01/23/18 09:03 CONCLUSION: 1. Persistent versus recurrent segmental wall thickening with pericolonic stranding involving the sigmoid colon. 2. Interval development of what appears to be a small transmural wall and pericolonic abscess measuring 2.6 x 1.6 cm in size. 3. Mesenteric reactive inflammation now surrounds several adjacent small bowel loops. 4. Otherwise stable exam. Discharge Plan Discharge Disposition Patient Disposition: 30 Still Patient Discharge Details Diagnosis: Diverticulitis large intestine Physicians Team ED Provider: José Miguel Rangel Primary Care Provider: Vasu Best Rxs /Orders / Referrals /Forms Prescriptions: No Action metoprolol tartrate [Lopressor] 50 mg Tablet 25 mg PO BID RF: 0 Discharge Interventions Interventions: Vital Signs Last Done: 01/23/18 10:54 Status ED Status: With Doctor
[2018-01-23 09:23] LABS: Baso % (Auto) 0.2 % (0.0-2.0); Eos % (Auto) 0.2 % (0.0-4.0); Hematocrit 50.8 % (39.0-51.0); Hemoglobin 17.4 gm/dL (13.0-17.0); Lymph # (Auto) 1.3 th/mm3 (1.0-4.8); Lymph % (Auto) 6.4 % (9.0-44.0); Mean Corpuscular HGB Conc 34.3 % (32.0-36.0); Mean Corpuscular Hemoglobin 31.5 pg (27.0-34.0); Mean Corpuscular Volume 91.8 fL (80.0-100.0); Mean Platelet Volume 7.4 fL (7.0-11.0); Mono # (Auto) 1.1 th/mm3 (0.0-0.9); Mono % (Auto) 5.5 % (0.0-8.0); Neut % (Auto) 87.7 % (16.0-70.0); Platelet Count 297 th/mm3 (150-450); Red Blood Count 5.53 mil/mm3 (4.50-5.90); White Blood Count 19.4 th/mm3 (4.0-11.0)
[2018-01-23 09:34] LABS: Activated Partial Thrombo Time 28.8 sec (23.4-31.7); Prothrombin Time 10.1 sec (9.8-11.6)
[2018-01-23 09:38] LABS: Alanine Aminotransferase 41 U/L (12-78); Albumin 4.7 g/dL (3.4-5.0); Anion Gap 10 meq/L (5-15); Aspartate Aminotransferase 19 U/L (15-37); Blood Urea Nitrogen 14 mg/dL (7-18); Calcium 9.4 mg/dL (8.5-10.1); Carbon Dioxide 25.3 meq/L (21.0-32.0); Chloride 105 meq/L (98-107); Glomerular Filtration Rate 67 mL/min (>89); Glucose,Random 99 mg/dL (74-106); Lipase 125 U/L (73-393); Potassium 4.3 meq/L (3.5-5.1); Sodium 140 meq/L (136-145)
[2018-01-23 09:40] LABS: Alkaline Phosphatase 108 U/L (45-117); Total Protein 8.3 g/dL (6.4-8.2)
--- NOTE | 2018-01-23 11:16 | CT ---
EXAM DATE: 01/23/2018 10:46 AM EST AGE/SEX: 53 years / Male INDICATIONS: Abdominal pain CLINICAL DATA: This is the patient's initial encounter. Patient reports that signs and symptoms have been present for 1 day and indicates a pain score of 5/10. MEDICAL/SURGICAL HISTORY: Diverticulitis. Hypertension. . ORAL CONTRAST: No oral contrast ingested. RADIATION DOSE: 6.74 CTDI (mGy) COMPARISON: [facility], CT ABDOMEN & PELVIS W CONTRAST, 10/10/2017. . TECHNIQUE: Multiple contiguous axial images were obtained through the abdomen and pelvis following b olus infusion of 95 ml Omnipaque 350 (iohexol) nonionic water-soluble contrast as a single exam dos e. No oral contrast ingested. Using automated exposure control and adjustment of the mA and/or kV ac cording to patient size, radiation dose was kept as low as reasonably achievable to obtain optimal di agnostic quality images. DICOM format image data is available electronically for review and comparis on. FINDINGS: Lower Lungs: The visualized lower lungs are clear. Liver: The liver has a homogeneous density without space-occupying lesion. There is no dilation of th e biliary tree. Spleen: Homogeneous density without enlargement. Pancreas: Unremarkable without mass or calcification. Kidneys: Normal in size and shape. No evidence of mass or hydronephrosis. Adrenal Glands: Unremarkable. Aorta: The aorta and proximal iliac vessels are grossly unremarkable without aneurysmal dilation. Bowel/Mesentery: Persistent segmental wall thickening with pericolonic stranding is evident in the m id to distal sigmoid colon. A transmural fluid collection involving the thickened wall and pericoloni c soft tissue has developed. The collection measures 2.6 x 1.6 cm in size. Inflammatory changes now i nvolve adjacent small intestinal loops were no obstructive changes are noted. Abdominal Wall: Intact. Retroperitoneum: No evidence of adenopathy in the retrocrural, para-aortic, or deep pelvic regions. Bladder: Contours are smooth. Reproductive Organs: No abnormal masses or calcifications seen. Inguinal: The inguinal region is unremarkable without evidence of adenopathy. Bony Structures: Unremarkable. CONCLUSION: 1. Persistent versus recurrent segmental wall thickening with pericolonic stranding involving the si gmoid colon. 2. Interval development of what appears to be a small transmural wall and pericolonic abscess measur ing 2.6 x 1.6 cm in size. 3. Mesenteric reactive inflammation now surrounds several adjacent small bowel loops. 4. Otherwise stable exam. Electronically signed by: Goyo Mcgowan MD 01/23/2018 11:15 AM EST
--- NOTE | 2018-01-23 13:40 | P.HPFP ---
History of Present Illness Primary Care Physician: Vasu Best, <Gianfranco Villa - 01/26/18 11:24> Vasu Best, DO <Lucero OLSENBinh H - 01/23/18 14:38> History of Present Illness: 53 yo male with a PMH of colonic abscess and HTN presents with report of severe pain after bowel prep for a colonoscopy scheduled for today. He went to Dr Whitney's office this morning for the colonoscopy and was sent to the ED for abdominal pain. He reports severe unremitting pain that feels like the area below his umbilicus is "on fire". Pain is 8-9/10 on pain scale made better by morphine and exacerbated by movement or sitting up. He was hospitalized for 7 days in September for the same problem. He also got C. diff during his last admission. He has not had any diarrhea or abdominal pain since discharge from the hospital. He has changed his diet since hospitalization and has had no problems with abdominal pain. He follows with Dr. Whitney (GI) in [place]. He saw Dr. Carlson at the last hospitalization and followed up with him as an outpatient. He had repeat imaging after hospitalization that showed no abscess and such required no surgery. He reports nausea, diarrhea from the colonoscopy prep. Denies blood in stool, vomiting, cardiovascular problems but does have abnormal EKG according to patient PMH: Hypertension previous diverticulitis 10/07/17 PSH: colonoscopy 6-8 years ago with polyps hernia repair as Meds: metoprolol BID testosterone injections every 2 weeks aspirin Family Hx: mother: cancer of colon/appendix father: prostate cancer in his 40s Social: lives with in [place] marijuana: 1 joint a day alcohol: 6 beers a week illicit drugs: none plays softball <Binh Barker III - 01/23/18 14:38> - Diagnosis (1) Diverticulitis large intestine (2) Colonic diverticular abscess (3) Hypertension (4) Nutrition, metabolism, and development symptoms <Gianfranco Villa - 01/26/18 11:24> (1) Diverticulitis large intestine (2) Colonic diverticular abscess (3) Hypertension (4) Nutrition, metabolism, and development symptoms <Binh Barker III - 01/23/18 14:39> Inpatient Certification: I certify that the inpatient services were ordered in accordance with Medicare regulations governing the order. This includes certification that hospital inpatient services are reasonable and necessary and in the case of services not specified as inpatient-only under 42 CFR 419.22(n), that they are appropriately provided as inpatient services in accordance to with the 2-midnight benchmark under 43 CFR 412.3(e) <VillaGianfranco - 01/26/18 11:24> Review of Systems Constitutional: Reports chills <Binh Barker III [facility] 01/23/18 13:39> Eyes: Denies blurry vision, Denies change in vision <Binh Barker III [facility] 12/02 13:39> Ears, Nose, Mouth, and Throat: Denies difficulty swallowing <Binh Barker III [facility] 01/23/18 13:39> Cardiovascular: Denies chest pain <Binh Barker III [facility] 01/23/18 13:39> Respiratory: Denies cough <Binh Barker III [facility] 01/23/18 13:39> Gastrointestinal: Reports abdominal pain, Reports black, tarry stools, Reports bright, red blood in stools <Lucero OLSENBinh [facility] 01/23/18 13:39> Genitourinary: Reports urinary frequency, Denies painful urination <Binh Barker III [facility] 01/23/18 13:39> Skin/Breast: Denies rash <Lucero OLSENBinh 01/23/18 13:39> Neurologic: Reports abnormal hearing (age related. not new) <Binh Barker III [facility] 01/23/18 13:39> Hematologic/Lymphatic: Denies easy bleeding, Denies easy bruising <Lucero OLSEN Binh [facility] 01/23/18 13:39> PMFSH - History History Provided By: Patient <Binh Barker III 01/23/18 13:39> - Medical History Medical History: Medical History (Last Reviewed 01/23/18 @ 08:09 by Norma Guzmán) Diverticulitis Hypertension <VillaGianfranco - 01/26/18 11:24> Medical History (Last Reviewed 01/23/18 @ 08:09 by Norma Guzmán) Diverticulitis Hypertension <Binh Barker III 01/23/18 13:39> - Surgical History Surgical History: Surgical History (Last Updated 01/23/18 @ 14:24 by Bihn Barker III, MD, R2) H/O hernia repair <AllenGianrfanco - 01/26/18 11:24> Surgical History (Last Updated 01/23/18 @ 14:24 by Binh Barker III, MD, R2) H/O hernia repair <Lucero OLSENBinh Decker 01/23/18 14:38> - Family History Family History: Family History (Last Updated 10/07/17 @ 15:42 by Yun Bautista MD, R1) Mother Cancer of appendix Father Prostate cancer <AllenGianfranco - 01/26/18 11:24> Family History (Last Updated 10/07/17 @ 15:42 by Yun Bautista MD, R1) Mother Cancer of appendix Father Prostate cancer <Mirandaashwiin OLSENBinh Decker 01/23/18 13:39> - Social History I have reviewed the patient's Social History: Yes <Lucero OLSENBinh Decker 14:38> - Tobacco History Second Hand Smoke Exposure: No <Lucero OLSENBinh Decker 01/23/18 13:39> Tobacco Use In Past 30 Days: No <Lucero OLSENBinh Decker 01/23/18 13:39> Smoking Status: Former smoker <Luceor OLSENBinh 01/23/18 13:39> Tobacco Type: Cigarettes <Lucero OLSENBinh Decker 01/23/18 13:39> - Alcohol History How Often Do You Have a Drink Containing Alcohol: Monthly or less <Lucero OLSEN Binh Decker 01/23/18 13:39> - Substance Use History Substance History: Active Abuse (smokes marijuana several times per week) < Lucero OLSENBinh Decker 01/23/18 14:38> - Travel History Recent Travel in the [place] Within the Last 8 Weeks: No <Lucero OLSENBinh Decker 12/02 13:39> Recent Travel Out of the Country Within the Last 8 Weeks: No <Lucero OLSEN Binh Decker 01/23/18 13:39> - Immunization History Tetanus Immunization: Unsure <Lucero OLSENBinh Decker 01/23/18 13:39> Medications and Allergies Allergies Allergy/AdvReac Type Severity Reaction Status Date / Time No Known Allergies Allergy Verified 01/23/18 08:10 <Gianfranco Villa - 01/26/18 11:24> Home Medications Medication Instructions Recorded Confirmed Type metoprolol tartrate [Lopressor] 25 mg PO BID 10/07/17 01/23/18 History <Gianfranco Villa - 01/26/18 11:24> Active Medications: Active Medications Sodium Chloride (Ns Flush) 2 ml IV.FLUSH PRN PRN PRN Reason: FLUSH AFTER USING IV ACCESS Last Admin: 01/23/18 09:16 Dose: 2 ml <Binh Barker III - 01/23/18 13:39> Exam Vital signs: Vital Signs 01/25/18 12:00 Temperature 98.6 F Pulse Rate 50 L Respiratory Rate 20 Blood Pressure 152/69 H Pulse Oximetry 98 <Gianfranco Villa - 01/26/18 11:24> Vital Signs 01/23/18 08:07 01/23/18 08:24 01/23/18 09:18 Temperature 97.4 F L Pulse Rate 85 67 73 Respiratory Rate 20 17 Blood Pressure 146/79 H 161/85 H 172/91 H Pulse Oximetry 98 98 01/23/18 10:54 Temperature Pulse Rate 79 Respiratory Rate 17 Blood Pressure 150/78 H Pulse Oximetry 97 Intake & Output 01/22/18 01/23/18 01/23/18 18:59 06:59 18:59 Weight 79.379 kg <Binh Barker III - 01/23/18 13:39> Narrative: GENERAL: 53 YO male with athletic build lying in bed with acute abdominal pain. SKIN: Warm and dry. No lesion or rash. HEAD: Normocephalic. Atraumatic. EYES: No scleral icterus. No injection or drainage. EOMI/PERRLA. NECK: Supple, trachea midline. No JVD or lymphadenopathy. CARDIOVASCULAR: Regular rate and rhythm without murmurs, gallops, or rubs. RESPIRATORY: Breath sounds equal bilaterally. No accessory muscle use. GASTROINTESTINAL: Abdomen soft, TTP below umbilicus, nondistended, no guarding, no rebound; there is no indication of rebound or acute abdomen. MUSCULOSKELETAL: No cyanosis, or edema. Moves all extremities spontaneously. BACK: Nontender without obvious deformity. No CVA tenderness. <Lucero OLSENBinh - 01/23/18 14:38> Results - Labs Result diagrams: 01/25/18 07:47 01/25/18 07:47 <Gianfranco Villa - 01/26/18 11:24> Abnormal lab results 01/23/18 01/23/18 Range/Units 08:50 08:50 WBC 19.4 H (4.0-11.0) th/mm3 Hgb 17.4 H (13.0-17.0) gm/dL Neut % (Auto) 87.7 H (16.0-70.0) % Lymph % (Auto) 6.4 L (9.0-44.0) % Neut # (Auto) 17.0 H (1.8-7.7) th/mm3 [place] # (Auto) 1.1 H (0.0-0.9) th/mm3 Estimated GFR 67 L (>89) mL/min Total Bilirubin 1.2 H (0.2-1.0) mg/dL Total Protein 8.3 H (6.4-8.2) g/dL Short CBC 01/23/18 Range/Units 08:50 WBC 19.4 H (4.0-11.0) th/mm3 Hgb 17.4 H (13.0-17.0) gm/dL Hct 50.8 (39.0-51.0) % Plt Count 297 (150-450) th/mm3 BMP 01/23/18 08:50 Sodium 140 Potassium 4.3 Chloride 105 Carbon Dioxide 25.3 BUN 14 Creatinine 1.14 Calcium 9.4 Liver Function 01/23/18 Range/Units 08:50 Total Bilirubin 1.2 H (0.2-1.0) mg/dL AST 19 (15-37) U/L ALT 41 (12-78) U/L Alkaline Phosphatase 108 (45-117) U/L Albumin 4.7 (3.4-5.0) g/dL <MirandaBinh maradiaga III - 01/23/18 13:39> - Imaging Impressions Abdomen/Pelvis CT 01/23/18 09:03 CONCLUSION: 1. Persistent versus recurrent segmental wall thickening with pericolonic stranding involving the sigmoid colon. 2. Interval development of what appears to be a small transmural wall and pericolonic abscess measuring 2.6 x 1.6 cm in size. 3. Mesenteric reactive inflammation now surrounds several adjacent small bowel loops. 4. Otherwise stable exam. <Binh Barker III - 01/23/18 14:38> Pete VTE Risk Assessment [place] VTE Risk Assessment: No/Low Risk (score <= 1) <Binh Barker III - 14:38> Pete Risk Assessment Model: Point Value = 1 Point Value = 2 Point Value = 3 Point Value = 5 Age 41-60 Minor surgery BMI > 25 kg/m2 Swollen legs Varicose veins or History of unexplained or recurrent spontaneous Oral contraceptives or hormone replacement Sepsis (< 1 month) Serious lung disease, including pneumonia (< 1 month) Abnormal pulmonary function Acute myocardial infarction Congestive heart failure (< 1 month) History of inflammatory bowel disease Medical patient at bed rest Age 61-74 Arthroscopic surgery Major open surgery (> 45 min) Laparoscopic surgery (> 45 min) Malignancy Confined to bed (> 72 hours) Immobilizing plaster cast Central venous access Age >= 75 History of VTE Family history of VTE Factor V Leiden Prothrombin [id number] Lupus anticoagulant Anticardiolipin antibodies Elevated serum homocysteine Heparin-induced thrombocytopenia Other congenital or acquired thrombophilia Stroke (< 1 month) Elective arthroplasty Hip, pelvis, or leg fracture Acute spinal cord injury (< 1 month) <Gianfranco Villa - 01/26/18 11:24> Prophylaxis Regimen: Total Risk Factor Score Risk Level Prophylaxis Regimen 0-1 Low Early ambulation 2 Moderate Order ONE of the following: *Sequential Compression Device (SCD) *Heparin 5000 units SQ BID 3-4 Higher Order ONE of the following medications: *Heparin 5000 units SQ TID *Enoxaparin/Lovenox 40 mg SQ daily (WT < 150 kg, CrCl > 30 mL/min) *Enoxaparin/Lovenox 30 mg SQ daily (WT < 150 kg, CrCl > 10-29 mL/min) *Enoxaparin/Lovenox 30 mg SQ BID (WT < 150 kg, CrCl > 30 mL/min) AND/OR *Sequential Compression Device (SCD) 5 or more Highest Order ONE of the following medications: *Heparin 5000 units SQ TID (Preferred with Epidurals) *Enoxaparin/Lovenox 40 mg SQ daily (WT < 150 kg, CrCl > 30 mL/min) *Enoxaparin/Lovenox 30 mg SQ daily (WT < 150 kg, CrCl > 10-29 mL/min) *Enoxaparin/Lovenox 30 mg SQ BID (WT < 150 kg, CrCl > 30 mL/min) AND *Sequential Compression Device (SCD) <Gianfranco Villa - 01/26/18 11:24> Assessment and Plan - Assessment (1) Diverticulitis large intestine Code(s): K57.32 - Diverticulitis of large intestine without perforation or abscess without bleeding Status: Acute (2) Colonic diverticular abscess Code(s): K57.20 - Diverticulitis of large intestine with perforation and abscess without bleeding Status: Acute (3) Hypertension Code(s): I10 - Essential (primary) hypertension Status: Acute (4) Nutrition, metabolism, and development symptoms Code(s): R63.8 - Other symptoms and signs concerning food and fluid intake Status: Acute <Raya Villageny - 01/26/18 11:24> (1) Diverticulitis large intestine Code(s): K57.32 - Diverticulitis of large intestine without perforation or abscess without bleeding Status: Acute (2) Colonic diverticular abscess Code(s): K57.20 - Diverticulitis of large intestine with perforation and abscess without bleeding Status: Acute (3) Hypertension Code(s): I10 - Essential (primary) hypertension Status: Acute (4) Nutrition, metabolism, and development symptoms Code(s): R63.8 - Other symptoms and signs concerning food and fluid intake Status: Acute <Binh Barker III - 01/23/18 14:39> - Assessment and Plan 53 YO male with PMHx diverticulitis with colonic abscess and HTN presents with recurrent case of diverticulitis with small 2.6 cm x 1.6 cm pericolonic abscess. Pt will be admitted for surgery consult, IV antibiotics, IVF and will be held NPO for now. There is no concern at this point for peritonitis or acute abdomen. Pt is known to Dr Carlson. 1. Mild-moderate diverticulitis with pericolonic abscess -Gen. surgery consult to Dr Carlson--appreciate recs -NPO -NS IVF @ 100 ml/hr -Levaquin 750 mg IV q24h -Flagyl 500 mg IV q8h -Morphine 4 mg IV q4h PRN pain 5-10 -Percocet 5/325 mg q4h breakthru 2. HTN -Continue home metoprolol 25 mg BID 3. FEN/GI/PPx: -Fluids as above -Electrolytes: -Nutrition: NPO for now -GI: Protonix 40 mg IV daily -PPx: SCDs bilaterally until surgery recs Tylenol 650 mg q6h PO PRN pain 1-4/fever Zofran 4 mg nausea/vomiting Daniela-colace 1 tab BID PRN Pt DW Dr Carlson <Binh Barker III - 01/23/18 14:38> - Attending Attestation See the residents documentation for details. I saw and evaluated the patient regarding the gutierrez portions of this evaluation and agree with the residents findings and plans as written. Parts of this note were created using [employer] voice recognition software program. While efforts were made to correct any mistakes made by this software, some mistakes, errors, and omissions may remain in the final note that were not caught when the note was originally created. Plan of care was discussed and agreed upon with the patient as specifically documented in the above note. An opportunity to ask questions with explanation was provided. Patient voiced understanding on all information reviewed and discussed. <Gianfranco Villa - 01/26/18 11:24> <Binh Barker III - Last Filed: 01/23/18 14:39> (1) Diverticulitis large intestine Qualifiers: Diverticulitis bleeding: without bleeding Diverticulitis complication: with abscess Qualified Code(s): K57.20 - Diverticulitis of large intestine with perforation and abscess without bleeding <Gianfranco Villa - Last Filed: 01/26/18 11:24> (1) Diverticulitis large intestine Qualifiers: Diverticulitis bleeding: without bleeding Diverticulitis complication: with abscess Qualified Code(s): K57.20 - Diverticulitis of large intestine with perforation and abscess without bleeding <Binh Barker III - Last Filed: 01/23/18 14:39> (1) Diverticulitis large intestine Qualifiers: Diverticulitis bleeding: without bleeding Diverticulitis complication: with abscess Qualified Code(s): K57.20 - Diverticulitis of large intestine with perforation and abscess without bleeding <Gianfranco Villa - Last Filed: 01/26/18 11:24> (1) Diverticulitis large intestine Qualifiers: Diverticulitis bleeding: without bleeding Diverticulitis complication: with abscess Qualified Code(s): K57.20 - Diverticulitis of large intestine with perforation and abscess without bleeding
[2018-01-23] MEDS ORDERED: Acetaminophen 325 MG Tablet PO PRN (14:00)
[2018-01-23] MEDS ORDERED: Senna/Docusate Sodium 8.6/50 MG Tablet PO PRN (14:00)
[2018-01-23] MEDS: Sod Chloride 0.9% Inj 1,000 ML IV.CONT SCH (14:40)
--- NOTE | 2018-01-23 14:41 | P.CONGS ---
[facility] Gen Surgery Consult Note Consult date: 01/23/18 Narrative: The patient is a 53-year-old male well-known to me from recent hospitalization in September from diverticulitis with peridiverticular abscess. That hospitalization was also complicated by diagnosis of Clostridium difficile. He followed up as an outpatient with resolution of the abscess and was planned to undergo colonoscopy today. He took the first bottle of prep with no problems and the second bottle of prep he developed severe left lower abdominal pain even worse than he had in September. He did present to the gastroenterology clinic and was told to proceed to the emergency department. He is noted to have leukocytosis of 19,[address] abdomen and pelvis which shows sigmoid thickening and surrounding inflammation and small transmural and peridiverticular abscess. Review of Systems All other systems reviewed negative except as stated in [facility] - History History Provided By: Patient - Medical History Medical History: Medical History (Last Reviewed 01/23/18 @ 08:09 by Norma Guzmán) Diverticulitis Hypertension - Surgical History Surgical History: Surgical History (Last Updated 01/23/18 @ 14:24 by Binh Barker III, MD, R2) H/O hernia repair - Family History Family History: Family History (Last Updated 10/07/17 @ 15:42 by Yun Bautista MD, R1) Mother Cancer of appendix Father Prostate cancer - Tobacco History Second Hand Smoke Exposure: No Tobacco Use In Past 30 Days: No Smoking Status: Former smoker Tobacco Type: Cigarettes - Alcohol History How Often Do You Have a Drink Containing Alcohol: Monthly or less - Substance Use History Substance History: No History of Abuse - Travel History Recent Travel in the [place] Within the Last 8 Weeks: No Recent Travel Out of the Country Within the Last 8 Weeks: No - Immunization History Tetanus Immunization: Unsure Medications and Allergies Active Medications: Active Medications Acetaminophen (Tylenol) 650 mg PO Q4H PRN PRN Reason: Temp > 100.4 Sodium Chloride (Ns Inj) 1,000 mls @ 100 mls/hr IV.CONT .Q10H SOLIS Levofloxacin/Dextrose (Levaquin 750 Mg Premix Inj) 150 mls @ 100 mls/hr IV.SIG Q24H SOLIS Metronidazole/Sodium Chloride (Flagyl 500 Mg Inj) 100 mls @ 100 mls/hr IV.SIG Q8HR SOLIS Metoprolol Tartrate (Lopressor) 25 mg PO BID SOLIS Morphine Sulfate (Morphine Inj) 4 mg IV.PUSH Q4H PRN PRN Reason: pain 5-10 Ondansetron HCl (Zofran Inj) 4 mg IV.PUSH Q6H PRN PRN Reason: NAUSEA OR VOMITING Oxycodone/Acetaminophen (Percocet 5/325 Mg) 1 tab PO Q4H PRN PRN Reason: BREAKTHROUGH PAIN Senna/Docusate Sodium (Daniela-Colace) 1 tab PO BID PRN PRN Reason: CONSTIPATION Sodium Chloride (Ns Flush) 2 ml IV.FLUSH PRN PRN PRN Reason: FLUSH AFTER USING IV ACCESS Last Admin: 01/23/18 09:16 Dose: 2 ml Allergies Allergy/AdvReac Type Severity Reaction Status Date / Time No Known Allergies Allergy Verified 01/23/18 08:10 Home Medications Medication Instructions Recorded Confirmed Type metoprolol tartrate [Lopressor] 25 mg PO BID 10/07/17 01/23/18 History Exam Vital signs: Vital Signs 01/23/18 08:07 01/23/18 08:24 01/23/18 09:18 Temperature 97.4 F L Pulse Rate 85 67 73 Respiratory Rate 20 17 Blood Pressure 146/79 H 161/85 H 172/91 H Pulse Oximetry 98 98 01/23/18 10:54 Temperature Pulse Rate 79 Respiratory Rate 17 Blood Pressure 150/78 H Pulse Oximetry 97 Intake & Output 01/22/18 01/23/18 01/23/18 18:59 06:59 18:59 Weight 79.379 kg Narrative: GENERAL: Awake and alert. No acute distress. Cooperative. HEAD: Normocephalic. Atraumatic. EYES: Pupils equal round and reactive to light bilaterally. No scleral icterus. ENT: Moist oral mucosa. NECK: Trachea midline. CHEST: Lungs clear to auscultation bilaterally with no wheezing or rhonchi. No respiratory distress. CARDIOVASCULAR: Regular rate and rhythm. ABDOMEN: Soft, mild distention. Positive rebound left lower abdomen with some localized guarding. Remainder of the abdomen is nontender. EXTREMITIES: No cyanosis or edema. SKIN: Warm, dry, nonjaundiced. Results - Labs 01/23/18 08:50 01/23/18 08:50 Laboratory Results - last 24 hr 01/23/18 01/23/18 01/23/18 08:50 08:50 08:50 WBC 19.4 H RBC 5.53 Hgb 17.4 H Hct 50.8 MCV 91.8 MCH 31.5 MCHC 34.3 RDW 14.0 Plt Count 297 MPV 7.4 Neut % (Auto) 87.7 H Lymph % (Auto) 6.4 L [place] % (Auto) 5.5 Eos % (Auto) 0.2 Baso % (Auto) 0.2 Neut # (Auto) 17.0 H Lymph # (Auto) 1.3 [place] # (Auto) 1.1 H Eos # (Auto) 0.0 Baso # (Auto) 0.0 WBC Differential . Differential Comment Auto diff final PT 10.1 INR 1.0 APTT 28.8 Sodium 140 Potassium 4.3 Chloride 105 Carbon Dioxide 25.3 Anion Gap 10 BUN 14 Creatinine 1.14 Estimated GFR 67 L Random Glucose 99 Calcium 9.4 Total Bilirubin 1.2 H AST 19 ALT 41 Alkaline Phosphatase 108 Total Protein 8.3 H Albumin 4.7 Lipase 125 - Imaging Imaging: ITS Impressions Abdomen/Pelvis CT 01/23/18 09:03 CONCLUSION: 1. Persistent versus recurrent segmental wall thickening with pericolonic stranding involving the sigmoid colon. 2. Interval development of what appears to be a small transmural wall and pericolonic abscess measuring 2.6 x 1.6 cm in size. 3. Mesenteric reactive inflammation now surrounds several adjacent small bowel loops. 4. Otherwise stable exam. CT scan - abdomen: report reviewed, image reviewed CT scan - pelvis: report reviewed, image reviewed Assessment and Plan - Assessment (1) Diverticulitis large intestine Code(s): K57.32 - Diverticulitis of large intestine without perforation or abscess without bleeding Status: Acute Qualifiers: Diverticulitis bleeding: without bleeding Diverticulitis complication: with abscess Qualified Code(s): K57.20 - Diverticulitis of large intestine with perforation and abscess without bleeding (2) Colonic diverticular abscess Code(s): K57.20 - Diverticulitis of large intestine with perforation and abscess without bleeding Status: Acute - Plan This is a 53-year-old male with recurrent diverticulitis with abscess. I reviewed the images and and the abscess does not appear to require drainage as it is quite small and primarily intramural. I recommend IV Levaquin and Flagyl. Hopefully this will resolve over the next couple of days. He can be started on clear liquid diet. Case discussed with Dr. Tripp Jean. I will check for C. difficile due to his history during the last hospitalization.
[2018-01-23] MEDS: Metoprolol Tartrate 50 MG Tablet PO SCH (21:13)
[2018-01-23] MEDS: Morphine Inj 4 MG/ML Vial IV.PUSH PRN (21:17)
[2018-01-24] MEDS: Sod Chloride 0.9% Inj 1,000 ML IV.CONT SCH ×3 (00:38→21:54)
[2018-01-24] MEDS: Morphine Inj 4 MG/ML Vial IV.PUSH PRN ×2 (04:22→11:20)
[2018-01-24 07:22] LABS: Baso % (Auto) 0.1 % (0.0-2.0); Eos # (Auto) 0.1 th/mm3 (0.0-0.4); Eos % (Auto) 0.5 % (0.0-4.0); Hematocrit 41.4 % (39.0-51.0); Hemoglobin 14.5 gm/dL (13.0-17.0); Lymph # (Auto) 1.3 th/mm3 (1.0-4.8); Mean Corpuscular HGB Conc 35.1 % (32.0-36.0); Mean Corpuscular Hemoglobin 31.8 pg (27.0-34.0); Mean Corpuscular Volume 90.5 fL (80.0-100.0); Mean Platelet Volume 7.4 fL (7.0-11.0); Mono % (Auto) 7.2 % (0.0-8.0); Neut % (Auto) 83.2 % (16.0-70.0); Platelet Count 233 th/mm3 (150-450); Red Blood Count 4.58 mil/mm3 (4.50-5.90); Red Cell Distribution Width 14.1 % (11.6-17.2); White Blood Count 14.4 th/mm3 (4.0-11.0)
[2018-01-24 07:58] LABS: Alanine Aminotransferase 25 U/L (12-78); Albumin 3.3 g/dL (3.4-5.0); Alkaline Phosphatase 94 U/L (45-117); Anion Gap 10 meq/L (5-15); Aspartate Aminotransferase 11 U/L (15-37); Blood Urea Nitrogen 11 mg/dL (7-18); Calcium 8.3 mg/dL (8.5-10.1); Carbon Dioxide 23.6 meq/L (21.0-32.0); Chloride 107 meq/L (98-107); Glomerular Filtration Rate 69 mL/min (>89); Glucose,Random 92 mg/dL (74-106); Potassium 3.9 meq/L (3.5-5.1); Sodium 141 meq/L (136-145); Total Protein 6.5 g/dL (6.4-8.2)
[2018-01-24] MEDS: Metoprolol Tartrate 50 MG Tablet PO SCH ×2 (09:26→21:54)
--- NOTE | 2018-01-24 10:46 | P.PNGS ---
Subjective Interval history: Pain somewhat improved. No bowel movt but + flatus. Tolerating clears and feels hungry. Physical Exam Vital signs: Vital Signs 01/23/18 10:54 01/23/18 14:44 01/23/18 16:00 Temperature 98.0 F Pulse Rate 79 88 83 Respiratory Rate 17 17 18 Blood Pressure 150/78 H 140/74 158/73 H Pulse Oximetry 97 98 01/23/18 16:30 01/23/18 20:00 01/24/18 00:00 Temperature 98.3 F 98.1 F Pulse Rate 67 71 Respiratory Rate 16 17 17 Blood Pressure 119/67 99/55 L Pulse Oximetry 97 96 01/24/18 04:00 01/24/18 08:00 Temperature 98.1 F 98.8 F Pulse Rate 69 68 Respiratory Rate 19 18 Blood Pressure 125/70 132/63 Pulse Oximetry 96 96 Intake & Output 01/23/18 01/24/18 01/24/18 18:59 06:59 18:59 Intake Total 610 / 610 1580 / 1580 100 / 100 Balance 610 / 610 1580 / 1580 100 / 100 Weight 79.379 kg 80.9 kg Intake: IV 250 / 250 1100 / 1100 100 / 100 NS Inj 1,000 ML @ 100 mls/hr IV 1000 / 1000 .CONT .Q10H [facility] Rx#:[id number] Levaquin 750 mg Premix Inj 150 150 / 150 ML @ 100 mls/hr IV.SIG Q24H [facility] Rx#:[id number] Flagyl 500 MG Inj 100 ML @ 100 100 / 100 100 / 100 100 / 100 mls/hr IV.SIG Q8HR [facility] Rx#: [id number] Oral 360 / 360 480 / 480 Other: # Voids 3 Narrative: NAD Abd: soft, mild distention, mild rebound just right of umbilicus but overall slightly improved Results - Labs 01/24/18 06:00 01/24/18 06:00 Laboratory Results - last 24 hr 01/24/18 01/24/18 06:00 06:00 WBC 14.4 H RBC 4.58 Hgb 14.5 D Hct 41.4 MCV 90.5 MCH 31.8 MCHC 35.1 RDW 14.1 Plt Count 233 MPV 7.4 Neut % (Auto) 83.2 H Lymph % (Auto) 9.0 [place] % (Auto) 7.2 Eos % (Auto) 0.5 Baso % (Auto) 0.1 Neut # (Auto) 12.0 H Lymph # (Auto) 1.3 [place] # (Auto) 1.0 H Eos # (Auto) 0.1 Baso # (Auto) 0.0 WBC Differential . Differential Comment Auto diff final Sodium 141 Potassium 3.9 Chloride 107 Carbon Dioxide 23.6 Anion Gap 10 BUN 11 Creatinine 1.10 Estimated GFR 69 L Random Glucose 92 Calcium 8.3 L D Total Bilirubin 1.2 H AST 11 L ALT 25 Alkaline Phosphatase 94 Total Protein 6.5 D Albumin 3.3 L D - Imaging Imaging: ITS Impressions Abdomen/Pelvis CT 01/23/18 09:03 CONCLUSION: 1. Persistent versus recurrent segmental wall thickening with pericolonic stranding involving the sigmoid colon. 2. Interval development of what appears to be a small transmural wall and pericolonic abscess measuring 2.6 x 1.6 cm in size. 3. Mesenteric reactive inflammation now surrounds several adjacent small bowel loops. 4. Otherwise stable exam. Assessment and Plan - Assessment (1) Diverticulitis large intestine Code(s): K57.32 - Diverticulitis of large intestine without perforation or abscess without bleeding Status: Acute (2) Colonic diverticular abscess Code(s): K57.20 - Diverticulitis of large intestine with perforation and abscess without bleeding Status: Acute - Plan This is a 53-year-old male with recurrent diverticulitis with abscess. Stable. Pain and wbc improving. Cont IV antibiotics. Soft diet. CBC in am. D/w Dr. Villa and resident team. (1) Diverticulitis large intestine Qualifiers: Diverticulitis bleeding: without bleeding Diverticulitis complication: with abscess Qualified Code(s): K57.20 - Diverticulitis of large intestine with perforation and abscess without bleeding
--- NOTE | 2018-01-24 11:45 | P.PNFP ---
Subjective Interval history: No acute events overnight. Patient seen and examined this AM. Remains afebrile, vitals stable. Patient states his pain is slightly improved. Has been tolerating a CLD. Denies any bowel movements. Endorses flatus. Denies chest pain, dyspnea, palpitations. <Yeison Carson - 01/24/18 11:44> Results - Labs Result diagrams: 01/25/18 07:47 01/25/18 07:47 <Gianfranco Villa - 01/26/18 11:54> Abnormal lab results 01/24/18 01/24/18 Range/Units 06:00 06:00 WBC 14.4 H (4.0-11.0) th/mm3 Neut % (Auto) 83.2 H (16.0-70.0) % Neut # (Auto) 12.0 H (1.8-7.7) th/mm3 [place] # (Auto) 1.0 H (0.0-0.9) th/mm3 Estimated GFR 69 L (>89) mL/min Calcium 8.3 L D (8.5-10.1) mg/dL Total Bilirubin 1.2 H (0.2-1.0) mg/dL AST 11 L (15-37) U/L Albumin 3.3 L D (3.4-5.0) g/dL Short CBC 01/24/18 Range/Units 06:00 WBC 14.4 H (4.0-11.0) th/mm3 Hgb 14.5 D (13.0-17.0) gm/dL Hct 41.4 (39.0-51.0) % Plt Count 233 (150-450) th/mm3 [facility] 01/24/18 06:00 Sodium 141 Potassium 3.9 Chloride 107 Carbon Dioxide 23.6 BUN 11 Creatinine 1.10 Calcium 8.3 L D Liver Function 01/24/18 Range/Units 06:00 Total Bilirubin 1.2 H (0.2-1.0) mg/dL AST 11 L (15-37) U/L ALT 25 (12-78) U/L Alkaline Phosphatase 94 (45-117) U/L Albumin 3.3 L D (3.4-5.0) g/dL <Yeison Carson - 01/24/18 11:44> Physical Exam Vital signs: Vital Signs 01/25/18 12:00 Temperature 98.6 F Pulse Rate 50 L Respiratory Rate 20 Blood Pressure 152/69 H Pulse Oximetry 98 <Gianfranco Villa - 01/26/18 11:54> Vital Signs 01/23/18 14:44 01/23/18 16:00 01/23/18 16:30 Temperature 98.0 F Pulse Rate 88 83 Respiratory Rate 17 18 16 Blood Pressure 140/74 158/73 H Pulse Oximetry 98 01/23/18 20:00 01/24/18 00:00 01/24/18 04:00 Temperature 98.3 F 98.1 F 98.1 F Pulse Rate 67 71 69 Respiratory Rate 17 17 19 Blood Pressure 119/67 99/55 L 125/70 Pulse Oximetry 97 96 96 01/24/18 08:00 01/24/18 11:29 Temperature 98.8 F Pulse Rate 68 Respiratory Rate 18 16 Blood Pressure 132/63 Pulse Oximetry 96 Intake & Output 01/23/18 01/24/18 01/24/18 18:59 06:59 18:59 Intake Total 610 / 610 1580 / 1580 1100 / 1100 Balance 610 / 610 1580 / 1580 1100 / 1100 Weight 79.379 kg 80.9 kg Intake: IV 250 / 250 1100 / 1100 1100 / 1100 NS Inj 1,000 ML @ 100 mls/hr IV 1000 / 1000 1000 / 1000 .CONT .Q10H [facility] Rx#:[id number] Levaquin 750 mg Premix Inj 150 150 / 150 ML @ 100 mls/hr IV.SIG Q24H [facility] Rx#:[id number] Flagyl 500 MG Inj 100 ML @ 100 100 / 100 100 / 100 100 / 100 mls/hr IV.SIG Q8HR [facility] Rx#: [id number] Oral 360 / 360 480 / 480 Other: # Voids 3 <Yeison Carson - 01/24/18 11:44> Narrative: GENERAL: NAD, lying comfortably in bed SKIN: Warm and dry. No lesion or rash. HEAD: Normocephalic. Atraumatic. EYES: No scleral icterus. No injection or drainage. EOMI. NECK: Supple, trachea midline. No JVD or lymphadenopathy. CARDIOVASCULAR: Regular rate and rhythm without murmurs, gallops, or rubs. RESPIRATORY: Breath sounds equal bilaterally. No accessory muscle use. GASTROINTESTINAL: Abdomen soft, TTP below umbilicus, nondistended, no guarding, no rebound; there is no indication of rebound or acute abdomen. MUSCULOSKELETAL: No cyanosis, or edema. Moves all extremities spontaneously. BACK: Nontender without obvious deformity. No CVA tenderness. <Yeison Carson - 01/24/18 11:44> Assessment and Plan - Assessment (1) Diverticulitis large intestine Code(s): K57.32 - Diverticulitis of large intestine without perforation or abscess without bleeding Status: Acute (2) Colonic diverticular abscess Code(s): K57.20 - Diverticulitis of large intestine with perforation and abscess without bleeding Status: Acute (3) Hypertension Code(s): I10 - Essential (primary) hypertension Status: Acute (4) Nutrition, metabolism, and development symptoms Code(s): R63.8 - Other symptoms and signs concerning food and fluid intake Status: Acute <Villa,Gianfranco - 01/26/18 11:54> (1) Diverticulitis large intestine Code(s): K57.32 - Diverticulitis of large intestine without perforation or abscess without bleeding Status: Acute (2) Colonic diverticular abscess Code(s): K57.20 - Diverticulitis of large intestine with perforation and abscess without bleeding Status: Acute (3) Hypertension Code(s): I10 - Essential (primary) hypertension Status: Acute (4) Nutrition, metabolism, and development symptoms Code(s): R63.8 - Other symptoms and signs concerning food and fluid intake Status: Acute <Vika Carsonsh - 01/24/18 11:38> - Assessment and Plan 53 YO male with PMHx diverticulitis with colonic abscess and HTN presents with recurrent case of diverticulitis with small 2.6 cm x 1.6 cm pericolonic abscess. Pt will be admitted for surgery consult, IV antibiotics, IVF. There is no concern at this point for peritonitis or acute abdomen. Pt is known to Dr Carlson. 1. Mild-moderate diverticulitis with pericolonic abscess -Gen. surgery consult to Dr Carlson--appreciate recs -Advance diet per surgery -NS IVF @ 100 ml/hr -Levaquin 750 mg IV q24h -Flagyl 500 mg IV q8h -Morphine 4 mg IV q4h PRN pain 5-10 -Percocet 5/325 mg q4h prn breakthrough 2. HTN -Continue home metoprolol 25 mg BID 3. FEN/GI/PPx: -Fluids as above -Electrolytes: continue to monitor and replete as needed -Nutrition: Regular diet per surgery -GI: Protonix 40 mg IV daily -PPx: SCDs bilaterally until surgery recs <Yeison Carson - 01/24/18 11:44> - Attending Attestation See the residents documentation for details. I saw and evaluated the patient regarding the gutierrez portions of this evaluation and agree with the residents findings and plans as written. Parts of this note were created using [employer] voice recognition software program. While efforts were made to correct any mistakes made by this software, some mistakes, errors, and omissions may remain in the final note that were not caught when the note was originally created. Plan of care was discussed and agreed upon with the patient as specifically documented in the above note. An opportunity to ask questions with explanation was provided. Patient voiced understanding on all information reviewed and discussed. <Gianfranco Villa - 01/26/18 11:54> <Yeison Carson - Last Filed: 01/24/18 11:38> (1) Diverticulitis large intestine Qualifiers: Diverticulitis bleeding: without bleeding Diverticulitis complication: with abscess Qualified Code(s): K57.20 - Diverticulitis of large intestine with perforation and abscess without bleeding <Gianfranco Villa - Last Filed: 01/26/18 11:54> (1) Diverticulitis large intestine Qualifiers: Diverticulitis bleeding: without bleeding Diverticulitis complication: with abscess Qualified Code(s): K57.20 - Diverticulitis of large intestine with perforation and abscess without bleeding <Yeison Carson - Last Filed: 01/24/18 11:38> (1) Diverticulitis large intestine Qualifiers: Diverticulitis bleeding: without bleeding Diverticulitis complication: with abscess Qualified Code(s): K57.20 - Diverticulitis of large intestine with perforation and abscess without bleeding <Gianfranco Villa - Last Filed: 01/26/18 11:54> (1) Diverticulitis large intestine Qualifiers: Diverticulitis bleeding: without bleeding Diverticulitis complication: with abscess Qualified Code(s): K57.20 - Diverticulitis of large intestine with perforation and abscess without bleeding
[2018-01-25 08:17] LABS: Baso % (Auto) 0.2 % (0.0-2.0); Eos # (Auto) 0.1 th/mm3 (0.0-0.4); Eos % (Auto) 1.7 % (0.0-4.0); Hematocrit 39.3 % (39.0-51.0); Hemoglobin 14.1 gm/dL (13.0-17.0); Lymph # (Auto) 1.6 th/mm3 (1.0-4.8); Lymph % (Auto) 18.9 % (9.0-44.0); Mean Corpuscular HGB Conc 35.9 % (32.0-36.0); Mean Corpuscular Hemoglobin 32.2 pg (27.0-34.0); Mean Corpuscular Volume 89.7 fL (80.0-100.0); Mean Platelet Volume 7.1 fL (7.0-11.0); Mono # (Auto) 0.6 th/mm3 (0.0-0.9); Mono % (Auto) 7.5 % (0.0-8.0); Neut % (Auto) 71.7 % (16.0-70.0); Platelet Count 215 th/mm3 (150-450); Red Blood Count 4.38 mil/mm3 (4.50-5.90); Red Cell Distribution Width 13.9 % (11.6-17.2); White Blood Count 8.4 th/mm3 (4.0-11.0)
[2018-01-25 08:39] LABS: Albumin 3.1 g/dL (3.4-5.0); Anion Gap 8 meq/L (5-15); Aspartate Aminotransferase 13 U/L (15-37); Blood Urea Nitrogen 8 mg/dL (7-18); Calcium 8.3 mg/dL (8.5-10.1); Carbon Dioxide 25.9 meq/L (21.0-32.0); Chloride 107 meq/L (98-107); Glomerular Filtration Rate 69 mL/min (>89); Glucose,Random 106 mg/dL (74-106); Potassium 3.9 meq/L (3.5-5.1); Sodium 141 meq/L (136-145)
[2018-01-25 08:42] LABS: Alanine Aminotransferase 23 U/L (12-78); Alkaline Phosphatase 75 U/L (45-117); Total Protein 6.5 g/dL (6.4-8.2)
[2018-01-25 08:47] VITALS: RESP 20
[2018-01-25] MEDS: Metoprolol Tartrate 50 MG Tablet PO SCH (09:10)
[2018-01-25 12:10] VITALS: BP 152/69; PULSE 50; TEMP 98.6; O2SAT 98
--- NOTE | 2018-01-25 12:41 | P.PNGS ---
Subjective Interval history: His pain is virtually resolved and he is tolerating soft diet. WBC normal. Physical Exam Vital signs: Vital Signs 01/24/18 16:00 01/24/18 20:00 01/25/18 00:00 Temperature 98.9 F 97.8 F 97.7 F Pulse Rate 68 70 66 Respiratory Rate 16 20 20 Blood Pressure 123/66 123/65 126/69 Pulse Oximetry 97 97 97 01/25/18 04:00 01/25/18 08:00 01/25/18 12:00 Temperature 98.1 F 98 F 98.6 F Pulse Rate 69 66 50 L Respiratory Rate 18 20 20 Blood Pressure 135/65 136/67 152/69 H Pulse Oximetry 97 95 98 Intake & Output 01/24/18 01/25/18 01/25/18 18:59 06:59 18:59 Intake Total 1350 / 1350 2160 / 2160 Balance 1350 / 1350 2160 / 2160 Weight 81.2 kg Intake: IV 1350 / 1350 1200 / 1200 NS Inj 1,000 ML @ 100 mls/hr IV 1000 / 1000 1000 / 1000 .CONT .Q10H [facility] Rx#:[id number] Levaquin 750 mg Premix Inj 150 150 / 150 ML @ 100 mls/hr IV.SIG Q24H [facility] Rx#:[id number] Flagyl 500 MG Inj 100 ML @ 100 200 / 200 200 / 200 mls/hr IV.SIG Q8HR [facility] Rx#: [id number] Oral 960 / 960 Other: # Voids 4 3 Date of Last Bowel Movement 01/25/18 # Bowel Movements 1 Narrative: NAD Abd: soft, min ttp Results - Labs 01/25/18 07:47 01/25/18 07:47 Laboratory Results - last 24 hr 01/25/18 01/25/18 01/25/18 05:50 07:47 07:47 WBC 8.4 RBC 4.38 L Hgb 14.1 Hct 39.3 MCV 89.7 MCH 32.2 MCHC 35.9 RDW 13.9 Plt Count 215 MPV 7.1 Neut % (Auto) 71.7 H Lymph % (Auto) 18.9 [place] % (Auto) 7.5 Eos % (Auto) 1.7 Baso % (Auto) 0.2 Neut # (Auto) 6.0 Lymph # (Auto) 1.6 [place] # (Auto) 0.6 Eos # (Auto) 0.1 Baso # (Auto) 0.0 WBC Differential . Differential Comment Auto diff final Sodium 141 Potassium 3.9 Chloride 107 Carbon Dioxide 25.9 Anion Gap 8 BUN 8 Creatinine 1.11 Estimated GFR 69 L Random Glucose 106 Calcium 8.3 L Total Bilirubin 0.4 AST 13 L ALT 23 Alkaline Phosphatase 75 Total Protein 6.5 Albumin 3.1 L Stl C.difficile DNA Amp Negative St C. diff Tox Epid 027 Negative - Imaging Imaging: ITS Impressions Abdomen/Pelvis CT 01/23/18 09:03 CONCLUSION: 1. Persistent versus recurrent segmental wall thickening with pericolonic stranding involving the sigmoid colon. 2. Interval development of what appears to be a small transmural wall and pericolonic abscess measuring 2.6 x 1.6 cm in size. 3. Mesenteric reactive inflammation now surrounds several adjacent small bowel loops. 4. Otherwise stable exam. Assessment and Plan - Assessment (1) Diverticulitis large intestine Code(s): K57.32 - Diverticulitis of large intestine without perforation or abscess without bleeding Status: Acute (2) Colonic diverticular abscess Code(s): K57.20 - Diverticulitis of large intestine with perforation and abscess without bleeding Status: Acute - Plan This is a 53-year-old male with recurrent diverticulitis with abscess. Stable. Pain and wbc improving. Clear for dc home on oral levaquin and flagyl. C dif was negative. F/u with me in two weeks. D/w Dr. Andujar. (1) Diverticulitis large intestine Qualifiers: Diverticulitis bleeding: without bleeding Diverticulitis complication: with abscess Qualified Code(s): K57.20 - Diverticulitis of large intestine with perforation and abscess without bleeding
--- NOTE | 2018-01-25 12:55 | P.PNFP ---
Subjective Interval history: Mr. Meyers had no acute events overnight. His pain is well controlled and he has not not had any opioid pain medication since yesterday morning; his white blood count has resolved; and he is tolerating a soft diet without any nausea, vomiting and has minimal abdominal pain. Patient feels ready to go home today and general surgery has signed off. Will follow up with a surgeon in 1-2 weeks. He denies chest pain, shortness of breath, fever, chills, nausea, vomiting, diarrhea, abdominal or leg pain. <Binh Barker III - 01/25/18 12:54> Results - Labs Result diagrams: 01/25/18 07:47 01/25/18 07:47 <Gianfranco Villa - 01/26/18 12:03> Abnormal lab results 01/25/18 01/25/18 Range/Units 07:47 07:47 RBC 4.38 L (4.50-5.90) mil/mm3 Neut % (Auto) 71.7 H (16.0-70.0) % Estimated GFR 69 L (>89) mL/min Calcium 8.3 L (8.5-10.1) mg/dL AST 13 L (15-37) U/L Albumin 3.1 L (3.4-5.0) g/dL Short CBC 01/25/18 Range/Units 07:47 WBC 8.4 (4.0-11.0) th/mm3 Hgb 14.1 (13.0-17.0) gm/dL Hct 39.3 (39.0-51.0) % Plt Count 215 (150-450) th/mm3 [facility] 01/25/18 07:47 Sodium 141 Potassium 3.9 Chloride 107 Carbon Dioxide 25.9 BUN 8 Creatinine 1.11 Calcium 8.3 L Liver Function 01/25/18 Range/Units 07:47 Total Bilirubin 0.4 (0.2-1.0) mg/dL AST 13 L (15-37) U/L ALT 23 (12-78) U/L Alkaline Phosphatase 75 (45-117) U/L Albumin 3.1 L (3.4-5.0) g/dL <Binh Barker III - 01/25/18 12:54> Physical Exam Vital signs: Vital Signs 01/24/18 16:00 01/24/18 20:00 01/25/18 00:00 Temperature 98.9 F 97.8 F 97.7 F Pulse Rate 68 70 66 Respiratory Rate 16 20 20 Blood Pressure 123/66 123/65 126/69 Pulse Oximetry 97 97 97 01/25/18 04:00 01/25/18 08:00 01/25/18 12:00 Temperature 98.1 F 98 F 98.6 F Pulse Rate 69 66 50 L Respiratory Rate 18 20 20 Blood Pressure 135/65 136/67 152/69 H Pulse Oximetry 97 95 98 Intake & Output 01/24/18 01/25/18 01/25/18 18:59 06:59 18:59 Intake Total 1350 / 1350 2160 / 2160 Balance 1350 / 1350 2160 / 2160 Weight 81.2 kg Intake: IV 1350 / 1350 1200 / 1200 NS Inj 1,000 ML @ 100 mls/hr IV 1000 / 1000 1000 / 1000 .CONT .Q10H [facility] Rx#:[id number] Levaquin 750 mg Premix Inj 150 150 / 150 ML @ 100 mls/hr IV.SIG Q24H [facility] Rx#:[id number] Flagyl 500 MG Inj 100 ML @ 100 200 / 200 200 / 200 mls/hr IV.SIG Q8HR [facility] Rx#: [id number] Oral 960 / 960 Other: # Voids 4 3 Date of Last Bowel Movement 01/25/18 # Bowel Movements 1 <Binh Barker III - 01/25/18 12:54> Narrative: GENERAL: NAD, standing at bedside. SKIN: Warm and dry. No lesion or rash. HEAD: Normocephalic. Atraumatic. EYES: No scleral icterus. No injection or drainage. EOMI. NECK: Supple, trachea midline. No JVD or lymphadenopathy. CARDIOVASCULAR: Regular rate and rhythm without murmurs, gallops, or rubs. RESPIRATORY: Breath sounds equal bilaterally. No accessory muscle use. GASTROINTESTINAL: Abdomen soft, mildly TTP below umbilicus, nondistended, no guarding, no rebound. MUSCULOSKELETAL: No cyanosis, or edema. Moves all extremities spontaneously. <Binh Barker III - 01/25/18 12:54> Assessment and Plan - Assessment (1) Diverticulitis large intestine Code(s): K57.32 - Diverticulitis of large intestine without perforation or abscess without bleeding Status: Acute (2) Colonic diverticular abscess Code(s): K57.20 - Diverticulitis of large intestine with perforation and abscess without bleeding Status: Acute (3) Hypertension Code(s): I10 - Essential (primary) hypertension Status: Acute (4) Nutrition, metabolism, and development symptoms Code(s): R63.8 - Other symptoms and signs concerning food and fluid intake Status: Acute <Gianfranco Villa - 01/26/18 12:03> (1) Diverticulitis large intestine Code(s): K57.32 - Diverticulitis of large intestine without perforation or abscess without bleeding Status: Acute (2) Colonic diverticular abscess Code(s): K57.20 - Diverticulitis of large intestine with perforation and abscess without bleeding Status: Acute (3) Hypertension Code(s): I10 - Essential (primary) hypertension Status: Acute (4) Nutrition, metabolism, and development symptoms Code(s): R63.8 - Other symptoms and signs concerning food and fluid intake Status: Acute <Binh Barker III - 01/25/18 12:49> - Assessment and Plan 53 YO male with PMHx diverticulitis with colonic abscess and HTN presents with recurrent case of diverticulitis with small 2.6 cm x 1.6 cm pericolonic abscess. Pt will be admitted for surgery consult, IV antibiotics, IVF. There is no concern at this point for peritonitis or acute abdomen. Pt is known to Dr Carlson. 1. Mild-moderate diverticulitis with pericolonic abscess -Gen. surgery consult to Dr Carlson--appreciate recs -Soft diet per surgery -NS IVF @ 100 ml/hr -Levaquin 750 mg IV q24h -Flagyl 500 mg IV q8h -Morphine 4 mg IV q4h PRN pain 5-10 -Percocet 5/325 mg q4h prn breakthrough -Pt to discharge on 10 days of PO Levaquin and Flagyl 2. HTN -Continue home metoprolol 25 mg BID 3. FEN/GI/PPx: -Fluids as above -Electrolytes: continue to monitor and replete as needed -Nutrition: Regular diet per surgery -GI: Protonix 40 mg IV daily -PPx: SCDs bilaterally until surgery recs Dispo: 01/25/18 Pt DW No Villa and Aldo <Binh Barker III - 01/25/18 12:54> - Attending Attestation See the residents documentation for details. I saw and evaluated the patient regarding the gutierrez portions of this evaluation and agree with the residents findings and plans as written. Parts of this note were created using [employer] voice recognition software program. While efforts were made to correct any mistakes made by this software, some mistakes, errors, and omissions may remain in the final note that were not caught when the note was originally created. Plan of care was discussed and agreed upon with the patient as specifically documented in the above note. An opportunity to ask questions with explanation was provided. Patient voiced understanding on all information reviewed and discussed. <Gianfranco Villa - 01/26/18 12:03> <Binh Barker III - Last Filed: 01/25/18 12:49> (1) Diverticulitis large intestine Qualifiers: Diverticulitis bleeding: without bleeding Diverticulitis complication: with abscess Qualified Code(s): K57.20 - Diverticulitis of large intestine with perforation and abscess without bleeding <Gianfranco Villa - Last Filed: 01/26/18 12:03> (1) Diverticulitis large intestine Qualifiers: Diverticulitis bleeding: without bleeding Diverticulitis complication: with abscess Qualified Code(s): K57.20 - Diverticulitis of large intestine with perforation and abscess without bleeding <Binh Barker III - Last Filed: 01/25/18 12:49> (1) Diverticulitis large intestine Qualifiers: Diverticulitis bleeding: without bleeding Diverticulitis complication: with abscess Qualified Code(s): K57.20 - Diverticulitis of large intestine with perforation and abscess without bleeding <Gianfranco Villa - Last Filed: 01/26/18 12:03> (1) Diverticulitis large intestine Qualifiers: Diverticulitis bleeding: without bleeding Diverticulitis complication: with abscess Qualified Code(s): K57.20 - Diverticulitis of large intestine with perforation and abscess without bleeding
--- NOTE | 2018-01-25 13:08 | P.DS ---
Date of admission: 01/23/18 14:12 Primary care physician: Vasu Best DO Attending physician on discharge: Gianfranco Villa Anticipated date of discharge: 01/25/18 Brief History from admission: 53 yo male with a PMH of colonic abscess and HTN presents with report of severe pain after bowel prep for a colonoscopy scheduled for today. He went to Dr Whitney' s office this morning for the colonoscopy and was sent to the ED for abdominal pain. He reports severe unremitting pain that feels like the area below his umbilicus is "on fire". Pain is 8-9/10 on pain scale made better by morphine and exacerbated by movement or sitting up. He was hospitalized for 7 days in September for the same problem. He also got C. diff during his last admission. He has not had any diarrhea or abdominal pain since discharge from the hospital. He has changed his diet since hospitalization and has had no problems with abdominal pain. He follows with Dr. Whitnye (GI) in [place]. He saw Dr. Carlson at the last hospitalization and followed up with him as an outpatient. He had repeat imaging after hospitalization that showed no abscess and such required no surgery. He reports nausea, diarrhea from the colonoscopy prep. Denies blood in stool, vomiting, cardiovascular problems but does have abnormal EKG according to patient PMH: Hypertension previous diverticulitis 10/07/17 PSH: colonoscopy 6-8 years ago with polyps hernia repair as Meds: metoprolol BID testosterone injections every 2 weeks aspirin Family Hx: mother: cancer of colon/appendix father: prostate cancer in his 40s Social: lives with in [place] marijuana: 1 joint a day alcohol: 6 beers a week illicit drugs: none plays softball Patient update on day of discharge: Pt's abdominal pain almost resolved, WBC wnl, and pt not requiring pain medication for abdominal pain. Stable. DS: Diagnosis - Discharge Diagnosis (1) Diverticulitis large intestine Status: Acute (2) Colonic diverticular abscess Status: Acute (3) Hypertension Status: Acute (4) Nutrition, metabolism, and development symptoms Status: Acute DS: Medications - Discharge Medications Prescriptions: levofloxacin [Levaquin] 750 mg PO DAILY 10 Days #10 tab metronidazole [Flagyl] 500 mg PO Q8H 10 Days #30 tab DS: Summary Hospital Course: 53 yo male with a PMH of diverticulitis with colonic abscess in September of this year and HTN presents with recurrent diverticulitis and pericolonic abscess. Patient presented with white blood count at 19.4, slightly elevated total bilirubin to 1.2, normal lipase at 125, and significant abdominal pain requiring opioid pain medication. Dr. Carlson, general surgery, was consulted as well as GI. Imaging showed a 2.6 cm x 1.[address] Carlson decided to manage nonoperatively and patient was started on IV Levaquin and Flagyl. Within 1 day the patient's white blood count decreased to 14.4, his abdominal pain improved, and patient's diet was advanced from clear liquids to soft mechanical diet by surgery. Today white blood count has resolved, total bilirubin is within normal limits, C. difficile testing was negative, patient has not required any pain medication since yesterday morning at 11:00AM, patient 's abdominal pain is very minimal this morning, patient has had a bowel movement that was nonbloody. There has been no nausea, vomiting, or diarrhea and after discussion with Dr. Carlson, patient will be discharged home on 10 days of p.o. Levaquin and Flagyl and will follow up with Dr. Carlson in 2 weeks. - Time Spent with Patient Total time spent providing and/or coordinating discharge services: Less than 30 minutes - Quality: AMI Clinical Trial Participant: No Exam Vital signs: Vital Signs 01/24/18 16:00 01/24/18 20:00 01/25/18 00:00 Temperature 98.9 F 97.8 F 97.7 F Pulse Rate 68 70 66 Respiratory Rate 16 20 20 Blood Pressure 123/66 123/65 126/69 Pulse Oximetry 97 97 97 01/25/18 04:00 01/25/18 08:00 01/25/18 12:00 Temperature 98.1 F 98 F 98.6 F Pulse Rate 69 66 50 L Respiratory Rate 18 20 20 Blood Pressure 135/65 136/67 152/69 H Pulse Oximetry 97 95 98 Intake & Output 01/24/18 01/25/18 01/25/18 18:59 06:59 18:59 Intake Total 1350 / 1350 2160 / 2160 Balance 1350 / 1350 2160 / 2160 Weight 81.2 kg Intake: IV 1350 / 1350 1200 / 1200 NS Inj 1,000 ML @ 100 mls/hr IV 1000 / 1000 1000 / 1000 .CONT .Q10H [facility] Rx#:[id number] Levaquin 750 mg Premix Inj 150 150 / 150 ML @ 100 mls/hr IV.SIG Q24H [facility] Rx#:[id number] Flagyl 500 MG Inj 100 ML @ 100 200 / 200 200 / 200 mls/hr IV.SIG Q8HR [facility] Rx#: [id number] Oral 960 / 960 Other: # Voids 4 3 Date of Last Bowel Movement 01/25/18 # Bowel Movements 1 Narrative: GENERAL: NAD, standing at bedside. SKIN: Warm and dry. No lesion or rash. HEAD: Normocephalic. Atraumatic. EYES: No scleral icterus. No injection or drainage. EOMI. NECK: Supple, trachea midline. No JVD or lymphadenopathy. CARDIOVASCULAR: Regular rate and rhythm without murmurs, gallops, or rubs. RESPIRATORY: Breath sounds equal bilaterally. No accessory muscle use. GASTROINTESTINAL: Abdomen soft, mildly TTP below umbilicus, nondistended, no guarding, no rebound. MUSCULOSKELETAL: No cyanosis, or edema. Moves all extremities spontaneously. Results Procedures completed during hospitalization: None Labs on day of discharge: Labs from last 24 hours 01/25/18 01/25/18 01/25/18 07:47 07:47 05:50 WBC 8.4 RBC 4.38 L Hgb 14.1 Hct 39.3 MCV 89.7 MCH 32.2 MCHC 35.9 RDW 13.9 Plt Count 215 MPV 7.1 Neut % (Auto) 71.7 H Lymph % (Auto) 18.9 [place] % (Auto) 7.5 Eos % (Auto) 1.7 Baso % (Auto) 0.2 Neut # (Auto) 6.0 Lymph # (Auto) 1.6 [place] # (Auto) 0.6 Eos # (Auto) 0.1 Baso # (Auto) 0.0 WBC Differential . Differential Comment Auto diff final Sodium 141 Potassium 3.9 Chloride 107 Carbon Dioxide 25.9 Anion Gap 8 BUN 8 Creatinine 1.11 Estimated GFR 69 L Random Glucose 106 Calcium 8.3 L Total Bilirubin 0.4 AST 13 L ALT 23 Alkaline Phosphatase 75 Total Protein 6.5 Albumin 3.1 L Stl C.difficile DNA Amp Negative St C. diff Tox Epid 027 Negative - Impressions ITS Impressions Abdomen/Pelvis CT 01/23/18 09:03 CONCLUSION: 1. Persistent versus recurrent segmental wall thickening with pericolonic stranding involving the sigmoid colon. 2. Interval development of what appears to be a small transmural wall and pericolonic abscess measuring 2.6 x 1.6 cm in size. 3. Mesenteric reactive inflammation now surrounds several adjacent small bowel loops. 4. Otherwise stable exam. Discharge Plan - Discharge Disposition Patient Disposition: Discharge Home - Discharge Condition Condition: Stable - Discharge Order Discharge Orders: Discharge Order (Routine); Ordered 01/25/18 Ordered By: Binh Barker III - Discharge Details Anticipated Discharge Date: 01/25/18 Discharge Comment: If cleared by [facility] - Physicians Team Primary Care Provider: Vasu Best Attending Provider: Gianfranco Villa Other Providers: Star Carlson MD
== END 2018-01-25 14:41 | disposition home or self-care (01) ==
LOC: NEPE 07:53 → NEDA 14:12 → N07 15:48
PROVIDERS: ADMIT Family Medicine; ATTEND Family Medicine